=== PATIENT | male | born 1980 | race American Indian/Alaskan Native ===

== ENCOUNTER 2018-12-02 13:18 | Emergency (ER) | payer SELFPAY ==
[~2018-12-02] VITALS: Ht 165.1 cm; Wt 61.4 kg
[~2018-12-02 13:18] MED LIST: GABA-532 PO
[2018-12-02] MEDS ORDERED: chlordiazePOXIDE 25mg capsule PO ONE (14:45)
[2018-12-02] MEDS ORDERED: normal saline 1000ml 1,000 ML IV ONE (14:55)
[2018-12-02] MEDS ORDERED: ondansetron/PF 4mg/2ml inj IV ONE (15:10)
[2018-12-02 16:10] VITALS: BP 112/46
== END 2018-12-02 16:11 | disposition home or self-care (01) ==
LOC: ER 13:18
DX: F10.920 Alcohol use, unspecified with intoxication, uncomplicated (principal); F17.200 Nicotine dependence, unspecified, uncomplicated; Z98.890 Other specified postprocedural states; Z88.0 Allergy status to penicillin; Z88.2 Allergy status to sulfonamides; Z88.1 Allergy status to other antibiotic agents; Z88.5 Allergy status to narcotic agent; Z79.899 Other long term (current) drug therapy; Y90.9 Presence of alcohol in blood, level not specified
CPT/HCPCS: 96374; 99283; J2405; J7030

== ENCOUNTER 2019-03-27 18:38 | Emergency (ER) | payer MEDICAID ==
[~2019-03-27] VITALS: Ht 165.1 cm; Wt 63.0 kg
[2019-03-27 18:58] LABS: CLARITY,URINE CLEAR (Clear); COLOR,URINE YELLOW (Yellow); GLUCOSE, URINE NEGATIVE (Neg); KETONES,URINE NEGATIVE (Neg); LEUKOCYTE ESTERASE ,URINE NEGATIVE (Neg); NITRITES, URINE NEGATIVE (Neg); OCCULT BLOOD,URINE NEGATIVE (Neg); PROTEIN,URINE NEGATIVE (Neg); UROBILINOGEN,URINE 0.2 E.U/dL (0.2-1.0)
--- NOTE | 2019-03-27 19:02 | NUR ---
PT'S FATHER DON
[2019-03-27 19:05] LABS: UA COLLECTION TYPE CLN CATCH MIDSTREAM
[2019-03-27] MEDS ORDERED: NO HOME MEDS (20:03)
[2019-03-27 20:25] LABS: BASOPHILS # (AUTO) 0.1 X10'3 (0-0.2); EOSINOPHILS # (AUTO) 0.1 X10'3 (0-0.9); MEAN CORPUSCULAR VOLUME 100.7 FL (78-98); MEAN PLATELET VOLUME 7.9 FL (7.4-10.4); MONOCYTES # (AUTO) 0.7 X10'3 (0-0.9); NEUTROPHILS # (AUTO) 3.6 X10'3 (1.8-7.7); NEUTROPHILS % (AUTO) 39.3 % (42-75)
[2019-03-27 20:27] LABS: BASOPHILS % (AUTO) 0.8 % (0-1); EOSINOPHILS % (AUTO) 0.9 % (0-6); HEMATOCRIT 40.2 % (42.0-52.0); HEMOGLOBIN 13.9 g/dl (14.0-17.9); LYMPHOCYTES # (AUTO) 4.7 X10'3 (1.1-4.8); LYMPHOCYTES % (AUTO) 51.5 % (21-51); MEAN CORPUSCULAR HEMOGLOBIN 34.9 PG (27.0-31.0); MEAN CORPUSCULAR HGB CONC 34.6 g/dL (33.0-36.5); MONOCYTES % (AUTO) 7.5 % (2-12); PLATELET COUNT 315 X10'3 (140-440); RED CELL DISTRIBUTION WIDTH 15.7 % (11.5-14.5)
[2019-03-27 20:38] LABS: ALANINE AMINOTRANSFERASE 50 U/L (12-78); ALBUMIN 3.4 G/DL (3.4-5.0); ALBUMIN/GLOBULIN RATIO 1.1 (1.1-1.5); ALKALINE PHOSPHATASE 102 IU/L (46-116); ANION GAP 6 (8-16); ASPARTATE AMINO TRANSFERASE 57 U/L (10-37); BILIRUBIN,TOTAL 0.4 MG/DL (0.1-1.0); BLOOD UREA NITROGEN 9 MG/DL (7-18); BUN/CREATININE RATIO 10.1 (5.4-32.0); CALCIUM 8.6 MG/DL (8.5-10.1); CHLORIDE 109 MMOL/L (99-107); CREATININE 0.89 MG/DL (0.60-1.10); GLUCOSE 82 MG/DL (70-104); SODIUM 148 MMOL/L (135-145); TOTAL CARBON DIOXIDE 32.7 MMOL/L (24-32); TOTAL PROTEIN 6.4 G/DL (6.4-8.2); eGFR > 90 ML/MIN
[2019-03-27 21:06] LABS: ETHANOL 0.334 GM/DL (0.0-0.010)
[2019-03-27] MEDS ORDERED: potassium Cl 20 mEq SR tablet PO STA (21:22)
--- NOTE | 2019-03-27 21:29 | NUR ---
PT'S DAUGHTER, CAORL . DAUGHTER'S BOYFRIEND AL .
[2019-03-27] MEDS ORDERED: LIDOcaine Viscous 15ml cup MM ONE (21:50)
[2019-03-27] MEDS ORDERED: famotidine 20mg tablet PO ONE (21:50)
[2019-03-27] MEDS ORDERED: ondansetron/PF 4mg/2ml inj IV ONE (21:50)
[2019-03-27] MEDS ORDERED: mag hydrox/Alum hydrox/simeth 30ml oral suspension PO ONE (21:50)
[2019-03-27] MEDS ORDERED: famotidine 10mg tablet PO ONE (22:00)
[2019-03-27 22:14] LABS: URINE AMPHETAMINE SCREEN NEGATIVE (Neg); URINE BARBITUATE SCREEN NEGATIVE (Neg); URINE BENZODIAZEPINES SCREEN NEGATIVE (Neg); URINE CANNABINOID SCREEN POSITIVE (Neg); URINE COCAINE SCREEN NEGATIVE (Neg); URINE METHADONE SCREEN NEGATIVE (Neg); URINE OPIATE SCREEN NEGATIVE (Neg); URINE PHENCYCLIDINE SCREEN NEGATIVE (Neg)
--- NOTE | 2019-03-27 22:16 | NUR ---
PTS BELONGINGS CHARTED AND SECURED IN AMBULANCE [facility]. BELONGINGS CONSISTED OF: 1 SHIRT, 2 SWEATERS, 1 BELT, 1 PAIR OF SHOES, 1 PAIR OF SOCKS, 2 SETS OF KEYS, WALLET (NO ASHRAF), ID CARD, MEMBERS 1ST BANK CARD, AND 1 PACK OF CAMEL CIGARETTES.
[2019-03-28 04:31] VITALS: BP 130/86
--- NOTE | 2019-03-28 06:42 | NUR ---
packet faxed to [facility]
--- NOTE | 2019-03-28 07:05 | NUR ---
Report from [facility] DIRK Meyers given to DIRK Raya. Pt ambulated from room 16 to overflow ED bed 25. Pt able to ambulate without assist and is calm and cooperative.
--- NOTE | 2019-03-28 07:15 | NUR ---
Patient ambulatory to bed 25, steady gait. No distress observed. Continue to monitor.
--- NOTE | 2019-03-28 08:50 | NUR ---
Patient reclining in bed with his eye clothes. No distress observed. Continue to monitor.
--- NOTE | 2019-03-28 10:40 | NUR ---
Patient awake and alert and laying in bed. Patient states he is no longer suicidal. Patient states his cousin's was last night and he was very depressed (cousin [place] [address] a couple of weeks ago and was young with a young family). Patient states he doesn't drink everyday but the last couple of weeks he has been drinking daily. Patient states he is feeling better. Patient state his daughter was worried about him and called the polince.
--- NOTE | 2019-03-28 12:41 | NUR ---
pt is sitting up in bed no issues at this time
== END 2019-03-28 13:29 | disposition home or self-care (01) ==
LOC: ER 18:38
DX: R45.851 Suicidal ideations (principal); F10.129 Alcohol abuse with intoxication, unspecified; Y90.9 Presence of alcohol in blood, level not specified; F17.200 Nicotine dependence, unspecified, uncomplicated; F10.99 Alcohol use, unspecified with unspecified alcohol-induced disorder; G89.21 Chronic pain due to trauma; Z98.890 Other specified postprocedural states; Z88.1 Allergy status to other antibiotic agents; Z88.5 Allergy status to narcotic agent; Z88.0 Allergy status to penicillin
CPT/HCPCS: 36415; 80053; 80305; 80320; 81003; 84443; 85025; 96374; 99284; J2405

== ENCOUNTER 2019-08-09 20:51 | Emergency (ER) | payer MEDICAID ==
[~2019-08-09] VITALS: Ht 162.6 cm; Wt 61.4 kg
[~2019-08-09 20:51] MED LIST changes: -GABA-532 PO; +NO HOME MEDS
[2019-08-09 20:58] VITALS: BP 141/102
[2019-08-09] MEDS ORDERED: HYDROcodone/acetaminophen 10/325mg tab PO ONE (21:05)
[2019-08-09] MEDS ORDERED: HYDR-4353 PO (21:30)
[2019-08-10] MEDS ORDERED: GABA-532 PO (02:45)
[2019-08-10] MEDS ORDERED: ONDA8TAB13 PO (03:09)
== END 2019-08-09 21:43 | disposition home or self-care (01) ==
LOC: ER 20:52
DX: S29.8XXA Other specified injuries of thorax, initial encounter (principal); F17.200 Nicotine dependence, unspecified, uncomplicated; Z98.890 Other specified postprocedural states; Z88.0 Allergy status to penicillin; Z88.2 Allergy status to sulfonamides; Z88.5 Allergy status to narcotic agent; Z88.1 Allergy status to other antibiotic agents; Z79.899 Other long term (current) drug therapy; W18.39XA Other fall on same level, initial encounter; Y93.89 Activity, other specified; Y92.89 Other specified places as the place of occurrence of the external cause; Y99.8 Other external cause status
CPT/HCPCS: 71101; 99284

== ENCOUNTER 2019-08-10 02:05 | Emergency (ER) | payer MEDICAID ==
[~2019-08-10] VITALS: Ht 162.6 cm; Wt 61.4 kg
[~2019-08-10 02:05] MED LIST changes: +HYDR-4353 PO
[2019-08-10] MEDS ORDERED: LORazepam 2 mg/ml vial IM ONE (02:40)
[2019-08-10] MEDS ORDERED: ondansetron 4mg rapidly disintigrating tab PO ONE (02:40)
[2019-08-10] MEDS ORDERED: GABA-532 PO (02:45)
[2019-08-10] MEDS ORDERED: ONDA8TAB13 PO (03:09)
[2019-08-10 03:12] VITALS: BP 148/87
== END 2019-08-10 03:13 | disposition home or self-care (01) ==
LOC: ER 02:05
DX: F10.239 Alcohol dependence with withdrawal, unspecified (principal); R11.2 Nausea with vomiting, unspecified; F17.200 Nicotine dependence, unspecified, uncomplicated; Z98.890 Other specified postprocedural states; Z88.0 Allergy status to penicillin; Z88.2 Allergy status to sulfonamides; Z79.899 Other long term (current) drug therapy; Y90.0 Blood alcohol level of less than 20 mg/100 ml
CPT/HCPCS: 96372; 99284; J2060

== ENCOUNTER 2019-10-06 08:16 | Emergency (ER) | payer MEDICAID ==
[~2019-10-06] VITALS: Ht 165.1 cm; Wt 62.0 kg
[~2019-10-06 08:16] MED LIST changes: +GABA-532 PO; -HYDR-4353 PO; +ONDA8TAB13 PO
[2019-10-06 08:22] VITALS: BP 160/99
[2019-10-06 08:41] LABS: CLARITY,URINE CLEAR (Clear); GLUCOSE, URINE NEGATIVE (Neg); KETONES,URINE TRACE mg/dl (Neg); LEUKOCYTE ESTERASE ,URINE NEGATIVE (Neg); NITRITES, URINE NEGATIVE (Neg); OCCULT BLOOD,URINE NEGATIVE (Neg); PROTEIN,URINE TRACE mg/dl (Neg); UROBILINOGEN,URINE 0.2 E.U/dL (0.2-1.0)
[2019-10-06 08:43] LABS: COLOR,URINE DARK YELLOW (Yellow); UA COLLECTION TYPE CLN CATCH MIDSTREAM
[2019-10-06 08:48] LABS: BACTERIA,URINE NONE SEEN /HPF (Neg); RBC,URINE 0-2 /HPF (0-2); SQUAMOUS EPITHELIAL CELL,UR FEW /LPF (FEW); WBC,URINE 0-4 /HPF (0-4)
[2019-10-06 08:49] LABS: HYALINE CASTS 0-3 /LPF (NEGATIVE); MUCUS STRANDS FEW /LPF (Neg); TRANSITIONAL EPI CELLS,URINE FEW /HPF
[2019-10-06] MEDS ORDERED: famotidine/PF 10 mg/ml inj IV ONE (09:00)
[2019-10-06] MEDS ORDERED: ringers solution, lacted 1,000 ML IV ONE (09:00)
[2019-10-06] MEDS ORDERED: ondansetron/PF 4mg/2ml inj IV ONE (09:00)
[2019-10-06 09:05] LABS: BASOPHILS # (AUTO) 0.1 X10'3 (0-0.2); BASOPHILS % (AUTO) 1.1 % (0-1); EOSINOPHILS # (AUTO) 0.2 X10'3 (0-0.9); EOSINOPHILS % (AUTO) 1.9 % (0-6); HEMATOCRIT 47.1 % (42.0-52.0); HEMOGLOBIN 16.1 g/dl (14.0-17.9); LYMPHOCYTES # (AUTO) 2.1 X10'3 (1.1-4.8); LYMPHOCYTES % (AUTO) 23.4 % (21-51); MEAN CORPUSCULAR HEMOGLOBIN 34.4 PG (27.0-31.0); MEAN CORPUSCULAR HGB CONC 34.2 g/dL (33.0-36.5); MEAN CORPUSCULAR VOLUME 100.8 FL (78-98); MEAN PLATELET VOLUME 7.8 FL (7.4-10.4); MONOCYTES # (AUTO) 0.9 X10'3 (0-0.9); MONOCYTES % (AUTO) 9.9 % (2-12); NEUTROPHILS # (AUTO) 5.7 X10'3 (1.8-7.7); NEUTROPHILS % (AUTO) 63.7 % (42-75); PLATELET COUNT 384 X10'3 (140-440); RED BLOOD COUNT 4.67 X10'6 (4.70-6.10); RED CELL DISTRIBUTION WIDTH 13.5 % (11.5-14.5)
--- NOTE | 2019-10-06 09:10 | NUR ---
patient to ct.
[2019-10-06 09:14] LABS: ALANINE AMINOTRANSFERASE 28 U/L (12-78); ALKALINE PHOSPHATASE 90 IU/L (46-116); ANION GAP 9 (8-16); ASPARTATE AMINO TRANSFERASE 25 U/L (10-37); BILIRUBIN,TOTAL 0.4 MG/DL (0.1-1.0); BLOOD UREA NITROGEN 9 MG/DL (7-18); BUN/CREATININE RATIO 8.3 (5.4-32.0); CALCIUM 10.4 MG/DL (8.5-10.1); CHLORIDE 101 MMOL/L (99-107); CREATININE 1.08 MG/DL (0.60-1.10); GLUCOSE 96 MG/DL (70-104); LIPASE 185 U/L (73-393); SODIUM 142 MMOL/L (135-145); TOTAL CARBON DIOXIDE 32.2 MMOL/L (24-32); eGFR 75 ML/MIN
[2019-10-06 09:21] LABS: POTASSIUM 2.9 MMOL/L (3.5-5.1)
[2019-10-06] MEDS ORDERED: FAMO-128 PO (10:28)
[2019-10-06] MEDS ORDERED: ONDA4TAB6 PO (10:28)
[2019-10-06] MEDS ORDERED: potassium Cl 20 mEq SR tablet PO STA (10:42)
== END 2019-10-06 10:51 | disposition home or self-care (01) ==
LOC: ER 08:16
DX: R10.84 Generalized abdominal pain (principal); R11.10 Vomiting, unspecified; F10.10 Alcohol abuse, uncomplicated; Z88.0 Allergy status to penicillin; Z88.2 Allergy status to sulfonamides; Z88.1 Allergy status to other antibiotic agents; Z79.899 Other long term (current) drug therapy; Y90.9 Presence of alcohol in blood, level not specified
CPT/HCPCS: 36415; 74176; 80053; 81001; 83690; 85025; 96361; 96374; 96375; 99284; J2405; J3490; J7120

== ENCOUNTER 2019-10-18 14:11 | Emergency (ER) | payer MEDICAID ==
[~2019-10-18] VITALS: Ht 165.1 cm; Wt 70.0 kg
[~2019-10-18 14:11] MED LIST changes: +FAMO-128 PO; +ONDA4TAB6 PO
[2019-10-18 14:25] VITALS: BP 146/97
== END 2019-10-18 17:14 | disposition left against medical advice (07) ==
LOC: ER 14:12
DX: F10.239 Alcohol dependence with withdrawal, unspecified (principal); Z53.21 Procedure and treatment not carried out due to patient leaving prior to being seen by health care provider

== ENCOUNTER 2019-11-15 14:55 | Emergency (ER) | payer MEDICAID ==
[~2019-11-15] VITALS: Ht 167.6 cm; Wt 62.7 kg
[2019-11-15] MEDS ORDERED: SUMA25TA9 PO (15:36)
[2019-11-15] MEDS ORDERED: PANT-47 PO (15:36)
[2019-11-15] MEDS ORDERED: METO-539 PO (15:38)
[2019-11-15 15:40] LABS: BASOPHILS # (AUTO) 0.2 X10'3 (0-0.2); BASOPHILS % (AUTO) 1.9 % (0-1); EOSINOPHILS # (AUTO) 0.5 X10'3 (0-0.9); EOSINOPHILS % (AUTO) 4.7 % (0-6); HEMATOCRIT 47.6 % (42.0-52.0); HEMOGLOBIN 15.9 g/dl (14.0-17.9); LYMPHOCYTES # (AUTO) 4.1 X10'3 (1.1-4.8); LYMPHOCYTES % (AUTO) 37.2 % (21-51); MEAN CORPUSCULAR HEMOGLOBIN 32.4 PG (27.0-31.0); MEAN CORPUSCULAR HGB CONC 33.5 g/dL (33.0-36.5); MEAN CORPUSCULAR VOLUME 96.6 FL (78-98); MEAN PLATELET VOLUME 7.9 FL (7.4-10.4); MONOCYTES # (AUTO) 1.1 X10'3 (0-0.9); NEUTROPHILS # (AUTO) 5.1 X10'3 (1.8-7.7); NEUTROPHILS % (AUTO) 46.2 % (42-75); PLATELET COUNT 418 X10'3 (140-440); RED BLOOD COUNT 4.92 X10'6 (4.70-6.10); RED CELL DISTRIBUTION WIDTH 13.8 % (11.5-14.5); WHITE BLOOD COUNT 11.1 X10'3 (4.5-11.0)
[2019-11-15 15:50] LABS: ALANINE AMINOTRANSFERASE 27 U/L (12-78); ALBUMIN 3.8 G/DL (3.4-5.0); ALBUMIN/GLOBULIN RATIO 0.9 (1.1-1.5); ALKALINE PHOSPHATASE 61 IU/L (46-116); ANION GAP 11 (8-16); ASPARTATE AMINO TRANSFERASE 19 U/L (10-37); BILIRUBIN,TOTAL 0.2 MG/DL (0.1-1.0); BLOOD UREA NITROGEN 16 MG/DL (7-18); BUN/CREATININE RATIO 12.6 (5.4-32.0); CALCIUM 9.1 MG/DL (8.5-10.1); CHLORIDE 107 MMOL/L (99-107); CREATININE 1.27 MG/DL (0.60-1.10); GLUCOSE 114 MG/DL (70-104); POTASSIUM 3.4 MMOL/L (3.5-5.1); SODIUM 144 MMOL/L (135-145); TOTAL CARBON DIOXIDE 26.2 MMOL/L (24-32); TOTAL PROTEIN 7.9 G/DL (6.4-8.2); eGFR 62 ML/MIN
[2019-11-15] MEDS ORDERED: SUMAtriptan 25 MG tablet PO PRN (15:55)
[2019-11-15] MEDS ORDERED: potassium Cl 20 mEq SR tablet PO STA (15:56)
[2019-11-15 15:59] LABS: ETHANOL 0.295 GM/DL (0.0-0.010)
--- NOTE | 2019-11-15 16:08 | NUR ---
Patient given K+ replacement. RN gave water to encourage a urine sample. Patient states he will go soon. Water pitcher at bedside. Continue to monitor.
[2019-11-15 18:43] LABS: CLARITY,URINE TURBID (Clear); COLOR,URINE YELLOW (Yellow); GLUCOSE, URINE NEGATIVE (Neg); KETONES,URINE NEGATIVE (Neg); LEUKOCYTE ESTERASE ,URINE NEGATIVE (Neg); NITRITES, URINE NEGATIVE (Neg); OCCULT BLOOD,URINE NEGATIVE (Neg); PROTEIN,URINE TRACE mg/dl (Neg); UROBILINOGEN,URINE 0.2 E.U/dL (0.2-1.0)
[2019-11-15 18:49] LABS: UA COLLECTION TYPE CLN CATCH MIDSTREAM
[2019-11-15 18:53] LABS: BACTERIA,URINE NONE SEEN /HPF (Neg); RBC,URINE NONE SEEN /HPF (0-2); SQUAMOUS EPITHELIAL CELL,UR FEW /LPF (FEW); WBC,URINE NONE SEEN /HPF (0-4)
[2019-11-15 18:54] LABS: AMORPHOUS URATES 4+; MUCUS STRANDS NONE SEEN /LPF (Neg)
[2019-11-15 19:02] LABS: URINE AMPHETAMINE SCREEN NEGATIVE (Neg); URINE BARBITUATE SCREEN NEGATIVE (Neg); URINE BENZODIAZEPINES SCREEN POSITIVE (Neg); URINE CANNABINOID SCREEN POSITIVE (Neg); URINE COCAINE SCREEN NEGATIVE (Neg); URINE METHADONE SCREEN NEGATIVE (Neg); URINE OPIATE SCREEN NEGATIVE (Neg); URINE PHENCYCLIDINE SCREEN NEGATIVE (Neg)
--- NOTE | 2019-11-15 19:20 | NUR ---
Informed N. Leann of patient C/O possible ETOH withdrawls. PT vital signs are all within normal limits HR in the 80s and BP 125/85 no visible tremors. Will continue to monitor
[2019-11-15] MEDS: pantoprazole 40mg Tablet.DR PO SCH (20:03)
[2019-11-15] MEDS: metoprolol succinate 25mg (24-HOUR) SR. Tablet PO SCH (20:06)
--- NOTE | 2019-11-16 00:54 | NUR ---
Pt. resting quietly, no signs or symptoms of distress. Respirations even and unlabored.
[2019-11-16 05:57] VITALS: BP 128/85
[2019-11-16] MEDS: pantoprazole 40mg Tablet.DR PO SCH (08:24)
[2019-11-16] MEDS: metoprolol succinate 25mg (24-HOUR) SR. Tablet PO SCH (08:24)
[2019-11-16] MEDS ORDERED: nicotine 21mg patch - 24 hr TD ONE (08:35)
--- NOTE | 2019-11-16 09:12 | NUR ---
Breaking Primary RN, pt is quietly talking to ANKUSH Ceballos, no s/s of agitation observed
--- NOTE | 2019-11-16 10:08 | NUR ---
pt.Pt discharged home by [facility] and ER physician. Pt given belongings and cell phone. DC instructions reviewed with pt. Pt left in stable condition with belonings. Father picking up
== END 2019-11-16 10:11 | disposition home or self-care (01) ==
LOC: ER 14:55
DX: T14.91XA Suicide attempt, initial encounter (principal); F10.129 Alcohol abuse with intoxication, unspecified; E87.6 Hypokalemia; E86.0 Dehydration; F32.9 Major depressive disorder, single episode, unspecified; F10.10 Alcohol abuse, uncomplicated; F12.90 Cannabis use, unspecified, uncomplicated; Z98.890 Other specified postprocedural states; Z88.0 Allergy status to penicillin; Z88.2 Allergy status to sulfonamides; Z88.1 Allergy status to other antibiotic agents; Z79.899 Other long term (current) drug therapy; Y93.89 Activity, other specified; Y92.89 Other specified places as the place of occurrence of the external cause; Y99.8 Other external cause status; Y90.0 Blood alcohol level of less than 20 mg/100 ml
CPT/HCPCS: 36415; 80053; 80305; 80320; 81001; 84443; 85025; 99285

== ENCOUNTER 2020-02-04 19:06 | Emergency (ER) | payer MEDICAID ==
[~2020-02-04] VITALS: Ht 167.6 cm; Wt 61.3 kg
[~2020-02-04 19:06] MED LIST changes: -FAMO-128 PO; -GABA-532 PO; +METO-539 PO; -NO HOME MEDS; -ONDA4TAB6 PO; -ONDA8TAB13 PO; +PANT-47 PO; +SUMA25TA9 PO
[2020-02-04] MEDS ORDERED: ondansetron/PF 4mg/2ml inj IV ONE (22:00)
[2020-02-04] MEDS ORDERED: normal saline 1000ML IV soln IVB ONE (22:00)
[2020-02-04 22:44] LABS: BASOPHILS # (AUTO) 0.2 X10'3 (0-0.2); BASOPHILS % (AUTO) 1.7 % (0-1); EOSINOPHILS % (AUTO) 0.3 % (0-6); HEMATOCRIT 46.4 % (42.0-52.0); HEMOGLOBIN 15.8 g/dl (14.0-17.9); LYMPHOCYTES # (AUTO) 3.1 X10'3 (1.1-4.8); LYMPHOCYTES % (AUTO) 22.9 % (21-51); MEAN CORPUSCULAR HEMOGLOBIN 31.8 PG (27.0-31.0); MEAN CORPUSCULAR HGB CONC 33.9 g/dL (33.0-36.5); MEAN CORPUSCULAR VOLUME 93.7 FL (78-98); MONOCYTES # (AUTO) 0.5 X10'3 (0-0.9); MONOCYTES % (AUTO) 3.3 % (2-12); NEUTROPHILS # (AUTO) 9.8 X10'3 (1.8-7.7); NEUTROPHILS % (AUTO) 71.8 % (42-75); PLATELET COUNT 310 X10'3 (140-440); RED BLOOD COUNT 4.96 X10'6 (4.70-6.10); RED CELL DISTRIBUTION WIDTH 13.4 % (11.5-14.5); WHITE BLOOD COUNT 13.7 X10'3 (4.5-11.0)
[2020-02-04 23:01] LABS: CLARITY,URINE SLIGHTLY CLOUDY (Clear); COLOR,URINE YELLOW (Yellow); GLUCOSE, URINE NEGATIVE (Neg); KETONES,URINE NEGATIVE (Neg); LEUKOCYTE ESTERASE ,URINE NEGATIVE (Neg); OCCULT BLOOD,URINE SMALL (Neg); PH,URINE 5.5 (4.8-8.0); PROTEIN,URINE 100 mg/dl (Neg); UROBILINOGEN,URINE 0.2 E.U/dL (0.2-1.0)
[2020-02-04 23:06] LABS: NITRITES, URINE NEGATIVE (Neg); UA COLLECTION TYPE NON-SPECIFIED
[2020-02-04 23:07] LABS: AMORPHOUS URATES 1+; BACTERIA,URINE FEW /HPF (Neg); RBC,URINE 0-2 /HPF (0-2); SQUAMOUS EPITHELIAL CELL,UR FEW /LPF (FEW); WBC,URINE 0-4 /HPF (0-4)
[2020-02-04 23:29] LABS: CHLORIDE 102 MMOL/L (99-107); POTASSIUM 3.7 MMOL/L (3.5-5.1); SODIUM 145 MMOL/L (135-145)
[2020-02-04] MEDS ORDERED: GABA300C PO (23:35)
[2020-02-04] MEDS ORDERED: ONDA4TAB6 PO (23:35)
[2020-02-04 23:51] LABS: ALANINE AMINOTRANSFERASE 36 U/L (12-78); ALBUMIN 4.3 G/DL (3.4-5.0); ALBUMIN/GLOBULIN RATIO 1.2 (1.1-1.5); ALKALINE PHOSPHATASE 74 IU/L (46-116); ANION GAP 18 (8-16); ASPARTATE AMINO TRANSFERASE 33 U/L (10-37); BILIRUBIN,TOTAL 0.5 MG/DL (0.1-1.0); BLOOD UREA NITROGEN 17 MG/DL (7-18); BUN/CREATININE RATIO 15.7 (5.4-32.0); CREATININE 1.08 MG/DL (0.60-1.10); ETHANOL 0.178 GM/DL (0.0-0.010); GLUCOSE 111 MG/DL (70-104); LIPASE 77 U/L (73-393); TOTAL CARBON DIOXIDE 25.2 MMOL/L (24-32); eGFR 75 ML/MIN
[2020-02-05] MEDS ORDERED: dextrose 5%-1/2 normal saline 1,000 ML IV ONE (00:20)
[2020-02-05] MEDS ORDERED: folic acid 1mg/0.2ml inj IV ONE (00:30)
[2020-02-05] MEDS ORDERED: thiamine 100mg/ml 2ml inj. IV ONE (00:30)
[2020-02-05 04:56] VITALS: BP 118/76
== END 2020-02-05 04:57 | disposition home or self-care (01) ==
LOC: ER 19:07
DX: R11.2 Nausea with vomiting, unspecified (principal); F10.230 Alcohol dependence with withdrawal, uncomplicated; F10.929 Alcohol use, unspecified with intoxication, unspecified; G43.909 Migraine, unspecified, not intractable, without status migrainosus; F31.9 Bipolar disorder, unspecified; G89.29 Other chronic pain; F32.9 Major depressive disorder, single episode, unspecified; Z88.0 Allergy status to penicillin; Z88.2 Allergy status to sulfonamides; Z88.1 Allergy status to other antibiotic agents; Z88.5 Allergy status to narcotic agent; Z79.899 Other long term (current) drug therapy; Y90.9 Presence of alcohol in blood, level not specified
CPT/HCPCS: 36415; 80053; 80320; 81001; 82948; 83690; 85025; 96361; 96374; 96375; 99285; J2405; J3411; J3490; J7030; 93005

== ENCOUNTER 2020-02-18 17:55 | Inpatient (IN) | payer MEDICAID ==
[~2020-02-18] VITALS: Ht 165.1 cm; Wt 62.3 kg
[~2020-02-18 17:55] MED LIST changes: +GABA300C PO; +ONDA4TAB6 PO
[2020-02-18] MEDS ORDERED: normal saline 1000ML IV soln IVB ONE ×2 (18:55→20:40)
[2020-02-18] MEDS ORDERED: LORazepam 2 mg/ml vial IV ONE (18:55)
[2020-02-18] MEDS ORDERED: ketorolac tromethamine 15mg/ml inj. IV ONE (19:20)
[2020-02-18 19:45] LABS: BASOPHILS # (AUTO) 0.1 X10'3 (0-0.2); BASOPHILS % (AUTO) 0.7 % (0-1); EOSINOPHILS % (AUTO) 0.3 % (0-6); HEMATOCRIT 51.1 % (42.0-52.0); HEMOGLOBIN 17.5 g/dl (14.0-17.9); LYMPHOCYTES # (AUTO) 2.5 X10'3 (1.1-4.8); LYMPHOCYTES % (AUTO) 19.3 % (21-51); MEAN CORPUSCULAR HEMOGLOBIN 32.2 PG (27.0-31.0); MEAN CORPUSCULAR HGB CONC 34.3 g/dL (33.0-36.5); MEAN PLATELET VOLUME 7.9 FL (7.4-10.4); MONOCYTES # (AUTO) 1.1 X10'3 (0-0.9); NEUTROPHILS # (AUTO) 9.4 X10'3 (1.8-7.7); NEUTROPHILS % (AUTO) 71.7 % (42-75); PLATELET COUNT 305 X10'3 (140-440); RED BLOOD COUNT 5.44 X10'6 (4.70-6.10); RED CELL DISTRIBUTION WIDTH 13.5 % (11.5-14.5); WHITE BLOOD COUNT 13.2 X10'3 (4.5-11.0)
[2020-02-18 19:50] LABS: PARTIAL THROMBOPLASTIN TIME 25 SECONDS (22-32)
[2020-02-18 20:02] LABS: ALANINE AMINOTRANSFERASE 201 U/L (12-78); ALBUMIN 3.8 G/DL (3.4-5.0); ALBUMIN/GLOBULIN RATIO 0.9 (1.1-1.5); ALKALINE PHOSPHATASE 139 IU/L (46-116); ANION GAP 14 (8-16); ASPARTATE AMINO TRANSFERASE 147 U/L (10-37); BILIRUBIN,TOTAL 0.2 MG/DL (0.1-1.0); BLOOD UREA NITROGEN 17 MG/DL (7-18); BUN/CREATININE RATIO 13.9 (5.4-32.0); CALCIUM 8.4 MG/DL (8.5-10.1); CHLORIDE 100 MMOL/L (99-107); CREATININE 1.22 MG/DL (0.60-1.10); ETHANOL 0.083 GM/DL (0.0-0.010); GLUCOSE 138 MG/DL (70-104); LIPASE 1068 U/L (73-393); MAGNESIUM 1.6 MG/DL (1.5-2.4); SODIUM 143 MMOL/L (135-145); TOTAL CARBON DIOXIDE 29.2 MMOL/L (24-32); TOTAL PROTEIN 7.9 G/DL (6.4-8.2); eGFR 65 ML/MIN
[2020-02-18] MEDS ORDERED: potassium Cl 20 mEq SR tablet PO ONE (20:40)
[2020-02-18] MEDS ORDERED: magnesium oxide 400mg tablet PO ONE (20:40)
[2020-02-18] MEDS ORDERED: magnesium 2GM in 50ml NS 50 ML IV ONE (20:40)
[2020-02-18] MEDS ORDERED: potassium 10mEq/100ml NS w/LIDOcaine (10mg/bag) IV ONE (20:40)
[2020-02-18] MEDS ORDERED: potassium Cl 10 mEq/100mL bag IV ONE (20:50)
[2020-02-18] MEDS ORDERED: chlordiazePOXIDE 25mg capsule PO ONE (20:50)
[2020-02-18] MEDS ORDERED: potassium Cl 20 mEq SR tablet PO PRN ×2 (21:35)
[2020-02-18] MEDS ORDERED: potassium CL 10mEq/100ml bag 100 ML IV PRN (21:35)
[2020-02-18] MEDS: normal saline 1000ml 1,000 ML IV SCH (21:35)
[2020-02-18] MEDS ORDERED: magnesium 4gm in 100ml NS 100 ML IV PRN (21:35)
[2020-02-18] MEDS ORDERED: magnesium Cl slow-release 64mg tablet PO PRN (21:35)
[2020-02-18] MEDS ORDERED: magnesium 2GM in 50ml NS 50 ML IV PRN (21:35)
[2020-02-18] MEDS ORDERED: acetaminophen 325mg tablet PO PRN (21:35)
[2020-02-18] MEDS ORDERED: METO-395 PO (21:42)
[2020-02-19 00:21] VITALS: BP 133/83
[2020-02-19] MEDS ORDERED: haloperidol 5mg tablet PO PRN (01:25)
[2020-02-19] MEDS ORDERED: HYDROcodone/acetaminophen 5mg/325mg tablet PO ONE (01:25)
[2020-02-19] MEDS ORDERED: haloperidol lactate 5mg/ml inj IM PRN (01:25)
[2020-02-19] MEDS: ondansetron/PF 4mg/2ml inj IV PRN ×2 (03:37→08:09)
[2020-02-19] MEDS ORDERED: thiamine inj. 100 MG in normal saline 100ml IV soln 100 ML IV ONE (04:00)
[2020-02-19 06:00] VITALS: BP 153/91
--- NOTE | 2020-02-19 06:10 | NUR ---
received report from collin shah
[2020-02-19 06:32] LABS: BASOPHILS # (AUTO) 0.1 X10'3 (0-0.2); BASOPHILS % (AUTO) 0.5 % (0-1); EOSINOPHILS # (AUTO) 0.2 X10'3 (0-0.9); EOSINOPHILS % (AUTO) 1.8 % (0-6); HEMATOCRIT 39.3 % (42.0-52.0); HEMOGLOBIN 13.4 g/dl (14.0-17.9); LYMPHOCYTES # (AUTO) 2.4 X10'3 (1.1-4.8); LYMPHOCYTES % (AUTO) 21.8 % (21-51); MEAN CORPUSCULAR HEMOGLOBIN 31.9 PG (27.0-31.0); MEAN CORPUSCULAR HGB CONC 33.9 g/dL (33.0-36.5); MEAN CORPUSCULAR VOLUME 93.8 FL (78-98); MEAN PLATELET VOLUME 7.9 FL (7.4-10.4); MONOCYTES # (AUTO) 0.9 X10'3 (0-0.9); MONOCYTES % (AUTO) 8.2 % (2-12); NEUTROPHILS # (AUTO) 7.6 X10'3 (1.8-7.7); NEUTROPHILS % (AUTO) 67.7 % (42-75); PLATELET COUNT 202 X10'3 (140-440); RED BLOOD COUNT 4.19 X10'6 (4.70-6.10); RED CELL DISTRIBUTION WIDTH 13.5 % (11.5-14.5); WHITE BLOOD COUNT 11.2 X10'3 (4.5-11.0)
[2020-02-19 06:42] LABS: ALBUMIN 2.9 G/DL (3.4-5.0); ANION GAP 8 (8-16); BLOOD UREA NITROGEN 14 MG/DL (7-18); BUN/CREATININE RATIO 13.9 (5.4-32.0); CALCIUM 6.8 MG/DL (8.5-10.1); CHLORIDE 107 MMOL/L (99-107); CREATININE 1.01 MG/DL (0.60-1.10); GLUCOSE 100 MG/DL (70-104); MAGNESIUM 1.8 MG/DL (1.5-2.4); POTASSIUM 3.5 MMOL/L (3.5-5.1); SODIUM 140 MMOL/L (135-145); TOTAL CARBON DIOXIDE 25.3 MMOL/L (24-32); eGFR 81 ML/MIN
[2020-02-19] MEDS: K and/or MAG REPLACEMENT MC SCH ×2 (06:54→20:00)
[2020-02-19] MEDS: normal saline 1000ml 1,000 ML IV SCH ×3 (07:35→19:38)
[2020-02-19] MEDS: folic acid 1mg/0.2ml inj IV SCH (07:49)
[2020-02-19] MEDS: thiamine inj. 100 MG, MVI, adult No.4 with vit. K 10 ML in dextrose 5% water 500ml 500 ML IV SCH ×3 (07:50)
[2020-02-19] MEDS ORDERED: HYDROcodone/acetaminophen 5mg/325mg tablet PO PRN (08:00)
[2020-02-19] MEDS ORDERED: HYDROmorphone inj. 0.5 MG/0.5 ML DISP.SYRIN IV PRN (08:00)
[2020-02-19] MEDS: metoprolol succinate 25mg (24-HOUR) SR. Tablet PO SCH (08:00)
[2020-02-19] MEDS: pantoprazole 40mg Tablet.DR PO SCH ×2 (08:01→19:37)
[2020-02-19] MEDS: nicotine 14mg patch - 24hr TD SCH (08:16)
[2020-02-19 10:25] VITALS: BP 164/90
[2020-02-19] MEDS: HYDROcodone/acetaminophen 10/325mg tab PO PRN ×3 (10:32→20:47)
--- NOTE | 2020-02-19 11:56 | NUR ---
Malnutrition consult re: lost weight d/t decreased appetite and nausea. Noted elevated lipase at 1068; per H&P pt had 6 shots hard liquor the night prior to presenting to the ED, had tripped, and subsequently consumed two more shots for the pain, and vomited. C/o nausea and vomiting likely r/t EtOH intake. H/o drinking 4-6 shots EtOH daily and admit with acute pancreatitis. Per H&P well developed. Receiving zofran. Is NPO. No edema. Per past weight history no significant weight loss in past year. Does not meet criteria for malnutrition. No malnutrition. Addendum: 02/19/20 at [address] Amended: Links added.
[2020-02-19] MEDS: LORazepam 2 mg/ml vial IV PRN ×3 (12:17→16:32)
[2020-02-19] MEDS: metoclopramide 5 mg/ml inj IV PRN ×2 (13:22→21:42)
[2020-02-19 18:00] VITALS: BP 143/90
--- NOTE | 2020-02-19 18:20 | NUR ---
gave report to july,
[2020-02-19] MEDS: LORazepam 1 MG tablet PO PRN (19:40)
[2020-02-19 22:00] VITALS: BP 135/84
[2020-02-20] MEDS: HYDROcodone/acetaminophen 10/325mg tab PO PRN ×5 (02:16→23:21)
--- NOTE | 2020-02-20 06:22 | NUR ---
Patient in room ORTHO 4021. I have received report from July and had the opportunity to ask questions and assume patient care.
[2020-02-20 07:02] LABS: BASOPHILS # (AUTO) 0.1 X10'3 (0-0.2); BASOPHILS % (AUTO) 0.7 % (0-1); EOSINOPHILS # (AUTO) 0.4 X10'3 (0-0.9); EOSINOPHILS % (AUTO) 5.2 % (0-6); HEMATOCRIT 37.3 % (42.0-52.0); HEMOGLOBIN 12.7 g/dl (14.0-17.9); LYMPHOCYTES # (AUTO) 2.2 X10'3 (1.1-4.8); LYMPHOCYTES % (AUTO) 28.6 % (21-51); MEAN CORPUSCULAR HEMOGLOBIN 31.8 PG (27.0-31.0); MEAN CORPUSCULAR HGB CONC 34.1 g/dL (33.0-36.5); MEAN CORPUSCULAR VOLUME 93.3 FL (78-98); MEAN PLATELET VOLUME 7.8 FL (7.4-10.4); MONOCYTES # (AUTO) 0.6 X10'3 (0-0.9); MONOCYTES % (AUTO) 7.2 % (2-12); NEUTROPHILS # (AUTO) 4.5 X10'3 (1.8-7.7); NEUTROPHILS % (AUTO) 58.3 % (42-75); PLATELET COUNT 192 X10'3 (140-440); RED CELL DISTRIBUTION WIDTH 13.3 % (11.5-14.5); WHITE BLOOD COUNT 7.7 X10'3 (4.5-11.0)
[2020-02-20 07:17] LABS: ALANINE AMINOTRANSFERASE 121 U/L (12-78); ALBUMIN 2.8 G/DL (3.4-5.0); ALBUMIN/GLOBULIN RATIO 0.9 (1.1-1.5); ALKALINE PHOSPHATASE 110 IU/L (46-116); AMYLASE 35 U/L (25-115); ANION GAP 7 (8-16); ASPARTATE AMINO TRANSFERASE 128 U/L (10-37); BILIRUBIN,TOTAL 0.5 MG/DL (0.1-1.0); BLOOD UREA NITROGEN 3 MG/DL (7-18); BUN/CREATININE RATIO 3.8 (5.4-32.0); CALCIUM 6.7 MG/DL (8.5-10.1); CHLORIDE 104 MMOL/L (99-107); CREATININE 0.79 MG/DL (0.60-1.10); GLUCOSE 82 MG/DL (70-104); LIPASE 350 U/L (73-393); MAGNESIUM 1.3 MG/DL (1.5-2.4); PHOSPHORUS 1.6 MG/DL (2.3-4.5); SODIUM 136 MMOL/L (135-145); TOTAL CARBON DIOXIDE 25.5 MMOL/L (24-32); TOTAL PROTEIN 5.8 G/DL (6.4-8.2); eGFR > 90 ML/MIN
[2020-02-20] MEDS: K and/or MAG REPLACEMENT MC SCH ×2 (08:00→20:00)
[2020-02-20] MEDS: pantoprazole 40mg Tablet.DR PO SCH ×2 (08:00→19:00)
[2020-02-20] MEDS: folic acid 1mg/0.2ml inj IV SCH (08:00)
[2020-02-20] MEDS: metoprolol succinate 25mg (24-HOUR) SR. Tablet PO SCH (08:00)
[2020-02-20] MEDS: ondansetron/PF 4mg/2ml inj IV PRN (08:00)
[2020-02-20] MEDS: LORazepam 1 MG tablet PO PRN ×2 (08:00→20:38)
[2020-02-20] MEDS: thiamine inj. 100 MG, MVI, adult No.4 with vit. K 10 ML in dextrose 5% water 500ml 500 ML IV SCH ×3 (08:00)
[2020-02-20] MEDS: nicotine 14mg patch - 24hr TD SCH (08:11)
[2020-02-20 10:00] VITALS: BP 144/85
[2020-02-20] MEDS ORDERED: POTASSIUM BICARB 20meq eff tab 20 MEQ TABLET.EFF PO PRN ×2 (10:57→10:58)
[2020-02-20] MEDS: normal saline 1000ml 1,000 ML IV SCH (11:00)
[2020-02-20 18:00] VITALS: BP 161/104
[2020-02-20] MEDS: potassium CL 10mEq/100ml bag 100 ML IV PRN ×3 (20:34→23:20)
[2020-02-20 22:00] VITALS: BP 149/93
[2020-02-21] MEDS: potassium CL 10mEq/100ml bag 100 ML IV PRN (00:32)
[2020-02-21] MEDS: HYDROcodone/acetaminophen 10/325mg tab PO PRN (04:46)
[2020-02-21] MEDS: normal saline 1000ml 1,000 ML IV SCH ×2 (04:49→09:35)
--- NOTE | 2020-02-21 06:17 | NUR ---
Problems reprioritized. Patient report given, questions answered & plan of care reviewed with DIRK NÚÑEZ.
[2020-02-21 07:54] LABS: BASOPHILS % (AUTO) 0.8 % (0-1); EOSINOPHILS # (AUTO) 0.3 X10'3 (0-0.9); EOSINOPHILS % (AUTO) 5.2 % (0-6); HEMATOCRIT 38.9 % (42.0-52.0); HEMOGLOBIN 13.3 g/dl (14.0-17.9); LYMPHOCYTES # (AUTO) 1.5 X10'3 (1.1-4.8); LYMPHOCYTES % (AUTO) 26.6 % (21-51); MEAN CORPUSCULAR HEMOGLOBIN 32.1 PG (27.0-31.0); MEAN CORPUSCULAR HGB CONC 34.3 g/dL (33.0-36.5); MEAN CORPUSCULAR VOLUME 93.7 FL (78-98); MONOCYTES # (AUTO) 0.4 X10'3 (0-0.9); MONOCYTES % (AUTO) 7.9 % (2-12); NEUTROPHILS # (AUTO) 3.3 X10'3 (1.8-7.7); NEUTROPHILS % (AUTO) 59.5 % (42-75); PLATELET COUNT 207 X10'3 (140-440); RED BLOOD COUNT 4.15 X10'6 (4.70-6.10); RED CELL DISTRIBUTION WIDTH 13.6 % (11.5-14.5); WHITE BLOOD COUNT 5.5 X10'3 (4.5-11.0)
[2020-02-21] MEDS: thiamine inj. 100 MG, MVI, adult No.4 with vit. K 10 ML in dextrose 5% water 500ml 500 ML IV SCH ×3 (08:09)
[2020-02-21] MEDS: metoprolol succinate 25mg (24-HOUR) SR. Tablet PO SCH (08:10)
[2020-02-21] MEDS: pantoprazole 40mg Tablet.DR PO SCH (08:10)
[2020-02-21] MEDS: nicotine 14mg patch - 24hr TD SCH (08:11)
[2020-02-21] MEDS: LORazepam 1 MG tablet PO PRN (08:11)
[2020-02-21] MEDS: folic acid 1mg/0.2ml inj IV SCH (08:18)
[2020-02-21 08:23] LABS: ALANINE AMINOTRANSFERASE 183 U/L (12-78); ALBUMIN 2.9 G/DL (3.4-5.0); ALBUMIN/GLOBULIN RATIO 0.9 (1.1-1.5); ALKALINE PHOSPHATASE 118 IU/L (46-116); AMYLASE 41 U/L (25-115); ANION GAP 7 (8-16); ASPARTATE AMINO TRANSFERASE 238 U/L (10-37); BILIRUBIN,TOTAL 0.4 MG/DL (0.1-1.0); BLOOD UREA NITROGEN 2 MG/DL (7-18); BUN/CREATININE RATIO 2.3 (5.4-32.0); CALCIUM 7.6 MG/DL (8.5-10.1); CHLORIDE 103 MMOL/L (99-107); CREATININE 0.86 MG/DL (0.60-1.10); GLUCOSE 86 MG/DL (70-104); LIPASE 355 U/L (73-393); MAGNESIUM 1.8 MG/DL (1.5-2.4); PHOSPHORUS 1.7 MG/DL (2.3-4.5); POTASSIUM 3.8 MMOL/L (3.5-5.1); SODIUM 137 MMOL/L (135-145); TOTAL CARBON DIOXIDE 27.1 MMOL/L (24-32); TOTAL PROTEIN 6.3 G/DL (6.4-8.2); eGFR > 90 ML/MIN
[2020-02-21] MEDS: ondansetron/PF 4mg/2ml inj IV PRN (10:42)
--- NOTE | 2020-02-21 13:33 | NUR ---
Patient asked to be discharged cause he had a grandma pass away. Patient had no nausea or pain. Patient was sent with education about pancreatitis. Pt said he knows he has papers at home about it.
== END 2020-02-21 13:30 | disposition home or self-care (01) | DRG 282 ==
LOC: ER 17:55 → ED HOLD 21:33 → ORTHO 4S 02-19 00:08
PROVIDERS: ADMIT Internal Medicine; ATTEND Family Medicine
DX: K85.20 Alcohol induced acute pancreatitis without necrosis or infection (principal); K70.10 Alcoholic hepatitis without ascites; F17.210 Nicotine dependence, cigarettes, uncomplicated; F10.229 Alcohol dependence with intoxication, unspecified; E87.6 Hypokalemia; F12.90 Cannabis use, unspecified, uncomplicated; K86.1 Other chronic pancreatitis; W18.09XA Striking against other object with subsequent fall, initial encounter; F32.9 Major depressive disorder, single episode, unspecified; G43.909 Migraine, unspecified, not intractable, without status migrainosus; G89.29 Other chronic pain; Y93.89 Activity, other specified; Y92.89 Other specified places as the place of occurrence of the external cause; Y99.8 Other external cause status
CPT/HCPCS: 36415; 71046; 72074; 80048; 80053; 80320; 82150; 82948; 83690; 83735; 84100; 85025; 85610; 85730; 87081; 93005; 96374; 96375; 97110; 97140; 97161; 97530; 99285; G0378; J1170; J1885; J2060; J2405; J2765; J3411; J3475; J3480; J3490; J7030; J7060

== ENCOUNTER 2020-03-03 07:19 | Inpatient (IN) | payer MEDICAID ==
[~2020-03-03] VITALS: Ht 165.1 cm; Wt 62.7 kg
[~2020-03-03 07:19] MED LIST changes: -GABA300C PO; +METO-395 PO; -METO-539 PO; -SUMA25TA9 PO
[2020-03-03] MEDS ORDERED: pantoprazole 40 MG vial IV ONE (07:25)
[2020-03-03] MEDS ORDERED: famotidine/PF 10 mg/ml inj IV ONE (07:25)
[2020-03-03] MEDS ORDERED: ondansetron/PF 4mg/2ml inj IV ONE ×2 (07:25→09:20)
[2020-03-03] MEDS ORDERED: normal saline 1000ML IV soln IVB ONE (07:25)
[2020-03-03 07:44] LABS: CLARITY,URINE CLOUDY (Clear); COLOR,URINE YELLOW (Yellow); GLUCOSE, URINE NEGATIVE (Neg); KETONES,URINE TRACE mg/dl (Neg); LEUKOCYTE ESTERASE ,URINE NEGATIVE (Neg); NITRITES, URINE NEGATIVE (Neg); OCCULT BLOOD,URINE TRACE-INTACT (Neg); PROTEIN,URINE 100 mg/dl (Neg)
[2020-03-03 07:50] LABS: UA COLLECTION TYPE URINAL
[2020-03-03 07:51] LABS: SQUAMOUS EPITHELIAL CELL,UR FEW /LPF (FEW)
[2020-03-03 07:56] LABS: MUCUS STRANDS MODERATE /LPF (Neg)
[2020-03-03 07:57] LABS: BACTERIA,URINE 2+ /HPF (Neg); RBC,URINE 0-2 /HPF (0-2); TRANSITIONAL EPI CELLS,URINE MODERATE /HPF
[2020-03-03 07:58] LABS: AMORPHOUS URATES 2+
[2020-03-03 07:59] LABS: COARSE GRANULAR CAST 0-3 /LPF (NEGATIVE); FINE GRANULAR CAST 0-3 /LPF (NEGATIVE); HYALINE CASTS 0-3 /LPF (NEGATIVE)
[2020-03-03 08:09] LABS: URINE AMPHETAMINE SCREEN NEGATIVE (Neg); URINE BARBITUATE SCREEN NEGATIVE (Neg); URINE BENZODIAZEPINES SCREEN POSITIVE (Neg); URINE CANNABINOID SCREEN POSITIVE (Neg); URINE COCAINE SCREEN NEGATIVE (Neg); URINE METHADONE SCREEN NEGATIVE (Neg); URINE OPIATE SCREEN NEGATIVE (Neg); URINE PHENCYCLIDINE SCREEN NEGATIVE (Neg)
[2020-03-03 08:18] LABS: BASOPHILS # (AUTO) 0.1 X10'3 (0-0.2); EOSINOPHILS # (AUTO) 0.2 X10'3 (0-0.9); LYMPHOCYTES # (AUTO) 1.9 X10'3 (1.1-4.8); NEUTROPHILS # (AUTO) 6.5 X10'3 (1.8-7.7); RED CELL DISTRIBUTION WIDTH 14.9 % (11.5-14.5); WHITE BLOOD COUNT 9.3 X10'3 (4.5-11.0)
[2020-03-03 08:20] LABS: BASOPHILS % (AUTO) 0.6 % (0-1); EOSINOPHILS % (AUTO) 2.3 % (0-6); HEMATOCRIT 44.6 % (42.0-52.0); HEMOGLOBIN 15.4 g/dl (14.0-17.9); LYMPHOCYTES % (AUTO) 20.9 % (21-51); MEAN CORPUSCULAR HEMOGLOBIN 32.7 PG (27.0-31.0); MEAN CORPUSCULAR HGB CONC 34.6 g/dL (33.0-36.5); MEAN CORPUSCULAR VOLUME 94.6 FL (78-98); MEAN PLATELET VOLUME 7.4 FL (7.4-10.4); MONOCYTES # (AUTO) 0.6 X10'3 (0-0.9); MONOCYTES % (AUTO) 6.6 % (2-12); NEUTROPHILS % (AUTO) 69.6 % (42-75); PLATELET COUNT 368 X10'3 (140-440); RED BLOOD COUNT 4.72 X10'6 (4.70-6.10)
[2020-03-03 08:31] LABS: ALANINE AMINOTRANSFERASE 355 U/L (12-78); ALBUMIN 3.1 G/DL (3.4-5.0); ALBUMIN/GLOBULIN RATIO 0.8 (1.1-1.5); ALKALINE PHOSPHATASE 211 IU/L (46-116); ANION GAP 13 (8-16); ASPARTATE AMINO TRANSFERASE 237 U/L (10-37); BILIRUBIN,TOTAL 0.5 MG/DL (0.1-1.0); BLOOD UREA NITROGEN 9 MG/DL (7-18); BUN/CREATININE RATIO 8.7 (5.4-32.0); CALCIUM 8.8 MG/DL (8.5-10.1); CHLORIDE 107 MMOL/L (99-107); CREATININE 1.03 MG/DL (0.60-1.10); ETHANOL 0.025 GM/DL (0.0-0.010); GLUCOSE 114 MG/DL (70-104); LIPASE 466 U/L (73-393); SODIUM 149 MMOL/L (135-145); TOTAL CARBON DIOXIDE 29.2 MMOL/L (24-32); TOTAL PROTEIN 6.9 G/DL (6.4-8.2); eGFR 80 ML/MIN
[2020-03-03 08:36] LABS: POTASSIUM 2.9 MMOL/L (3.5-5.1)
[2020-03-03] MEDS: potassium Cl 20 mEq SR tablet PO ONE ×2 (09:15→09:36)
[2020-03-03] MEDS: magnesium oxide 400mg tablet PO ONE ×2 (09:15→09:36)
--- NOTE | 2020-03-03 09:20 | NUR ---
Pt attempted to take magnesium pill with water, unable to tolerate. Nausea/vomitting. Dr. Kendall aware. Orders to give additional dose of Zofran.
[2020-03-03] MEDS ORDERED: haloperidol lactate 5mg/ml inj IM PRN (10:10)
[2020-03-03] MEDS ORDERED: potassium CL 10mEq/100ml bag 100 ML IV PRN ×2 (10:10)
[2020-03-03] MEDS ORDERED: metoclopramide 5 mg/ml inj IV PRN (10:10)
[2020-03-03] MEDS ORDERED: acetaminophen 650mg rectal suppository RC PRN (10:10)
[2020-03-03] MEDS ORDERED: haloperidol 5mg tablet PO PRN (10:10)
[2020-03-03] MEDS ORDERED: bisacodyl 10mg suppository rectal RC PRN (10:10)
[2020-03-03] MEDS ORDERED: magnesium 4gm in 100ml NS 100 ML IV PRN (10:10)
[2020-03-03] MEDS ORDERED: mag hydrox/Alum hydrox/simeth 30ml oral suspension PO PRN (10:10)
[2020-03-03] MEDS ORDERED: magnesium hydroxide 30ml (MOM) UD suspension PO PRN (10:10)
[2020-03-03] MEDS ORDERED: acetaminophen 325mg tablet PO PRN ×2 (10:10)
[2020-03-03] MEDS ORDERED: magnesium 2GM in 50ml NS 50 ML IV PRN (10:10)
[2020-03-03] MEDS ORDERED: dextrose 50%-water 50ml dispensing syringe IV PRN (10:10)
[2020-03-03] MEDS ORDERED: thiamine 100mg/ml 2ml inj. IV ONE (10:10)
[2020-03-03] MEDS: potassium Cl 20mEq in D5-NS 1,000 ML IV SCH ×2 (10:47→20:10)
[2020-03-03] MEDS: LORazepam 2 mg/ml vial IV PRN ×2 (10:47→19:57)
[2020-03-03 10:50] LABS: HEMOGLOBIN A1C 5.6 % (4.5-6.2)
--- NOTE | 2020-03-03 10:55 | NUR ---
Report given to RN on surgical.
--- NOTE | 2020-03-03 10:56 | NUR ---
RECEIVED REPORT FROM DIRK KEITH. AWAITING PATIENT ARRIVAL.
--- NOTE | 2020-03-03 11:10 | NUR ---
PATIENT ARRIVED TO FLOOR. VSS. NO COMPLAINTS.
[2020-03-03] MEDS ORDERED: CHOL200016 PO (11:20)
[2020-03-03 11:30] VITALS: BP 160/69
[2020-03-03] MEDS: potassium Cl 20 mEq SR tablet PO PRN ×2 (12:28→20:01)
--- NOTE | 2020-03-03 15:37 | NUR ---
PAGER ID: [phone] MESSAGE: Cesar ChuaB : patient c/o 12/21 abd pain. no pain medication ordered. thanks! [phone] [phone]
[2020-03-03] MEDS: HYDROcodone/acetaminophen 5mg/325mg tablet PO PRN ×2 (16:03→20:02)
--- NOTE | 2020-03-03 18:20 | NUR ---
Patient in room [facility]IA[facility] 357. I have received report from MATILDE CAVAZOS and had the opportunity to ask questions and assume patient care. Addendum: 03/03/20 at 1904 by Sandra Mistry RN Amended: Links added.
--- NOTE | 2020-03-03 18:40 | NUR ---
Problems reprioritized. Patient report given, questions answered & plan of care reviewed with DIRK Flores.
[2020-03-03 19:30] VITALS: BP 154/79
[2020-03-03] MEDS: ESOMEPRAZOLE 40 MG VIAL IV SCH (19:40)
--- NOTE | 2020-03-03 19:40 | NUR ---
pt given hs medications accucheck done. c/o of being anxious and shaky medicated with iv Ativan. noted lungs clear decreased in bases.
[2020-03-03] MEDS: heparin, porcine 5000 units/ml vial SQ SCH (19:51)
--- NOTE | 2020-03-03 19:55 | NUR ---
pt also took potassium this pm for k of 2.9 and is receiving it in his iv as well.
[2020-03-03] MEDS: K and/or MAG REPLACEMENT MC SCH (20:00)
--- NOTE | 2020-03-03 20:00 | NUR ---
pt medicated with norco for pain scanned iv and saved it but did not show up on the computer. pt requested benadryl dry skin states it also helps with his headaches. states he feels he is withdrawing. teaching done regarding effects of alcohol on his body over time and talked about pt joining AA to help him through this. pt seems receptive to this and stated he has been thinking of it since his conversation to the Dr and my teaching has helped reinforce it.
[2020-03-03] MEDS: diphenhydrAMINE 25mg capsule PO PRN (20:01)
[2020-03-03] MEDS ORDERED: normal saline 1000ml 1,000 ML IV ONE (21:55)
--- NOTE | 2020-03-03 22:00 | NUR ---
resting eyes closed without changes at this time.
[2020-03-03] MEDS: potassium CL 20mEq in D5-1/2NS 1,000 ML IV SCH (22:19)
--- NOTE | 2020-03-03 23:34 | NUR ---
awoke and requesting ice chips. few given.
[2020-03-04] VITALS: BP 148/87
[2020-03-04] MEDS: HYDROcodone/acetaminophen 5mg/325mg tablet PO PRN ×5 (01:48→22:10)
--- NOTE | 2020-03-04 01:49 | NUR ---
PT MEDICATED FOR PAIN WITH NORCO FOR THE PAIN.
--- NOTE | 2020-03-04 02:01 | NUR ---
SHAY 104.
[2020-03-04] MEDS: ondansetron/PF 4mg/2ml inj IV PRN ×2 (03:06→17:09)
--- NOTE | 2020-03-04 03:08 | NUR ---
PT WOKE UP WITH NAUSEA AND MEDICATED WITH IV ZOFRAN FOR THIS.
[2020-03-04 05:04] LABS: BASOPHILS # (AUTO) 0.2 X10'3 (0-0.2); BASOPHILS % (AUTO) 1.3 % (0-1); EOSINOPHILS # (AUTO) 0.4 X10'3 (0-0.9); EOSINOPHILS % (AUTO) 3.5 % (0-6); HEMATOCRIT 40.5 % (42.0-52.0); HEMOGLOBIN 13.7 g/dl (14.0-17.9); LYMPHOCYTES # (AUTO) 2.6 X10'3 (1.1-4.8); LYMPHOCYTES % (AUTO) 21.3 % (21-51); MEAN CORPUSCULAR HEMOGLOBIN 32.5 PG (27.0-31.0); MEAN CORPUSCULAR HGB CONC 33.8 g/dL (33.0-36.5); MEAN CORPUSCULAR VOLUME 96.3 FL (78-98); MEAN PLATELET VOLUME 7.8 FL (7.4-10.4); MONOCYTES # (AUTO) 0.6 X10'3 (0-0.9); MONOCYTES % (AUTO) 5.1 % (2-12); NEUTROPHILS # (AUTO) 8.5 X10'3 (1.8-7.7); NEUTROPHILS % (AUTO) 68.8 % (42-75); PLATELET COUNT 278 X10'3 (140-440); RED CELL DISTRIBUTION WIDTH 15.4 % (11.5-14.5); WHITE BLOOD COUNT 12.3 X10'3 (4.5-11.0)
[2020-03-04 05:33] LABS: ALANINE AMINOTRANSFERASE 278 U/L (12-78); ALBUMIN 2.7 G/DL (3.4-5.0); ALBUMIN/GLOBULIN RATIO 0.8 (1.1-1.5); ALKALINE PHOSPHATASE 182 IU/L (46-116); AMYLASE 44 U/L (25-115); ANION GAP 6 (8-16); ASPARTATE AMINO TRANSFERASE 175 U/L (10-37); BILIRUBIN,TOTAL 0.7 MG/DL (0.1-1.0); BLOOD UREA NITROGEN 6 MG/DL (7-18); BUN/CREATININE RATIO 6.3 (5.4-32.0); CALCIUM 8.2 MG/DL (8.5-10.1); CHLORIDE 112 MMOL/L (99-107); CHOL/HDL RATIO 3.8 (0.00-4.99); CHOLESTEROL 110 MG/DL (0-200); CREATININE 0.96 MG/DL (0.60-1.10); GLUCOSE 108 MG/DL (70-104); HDL CHOLESTEROL 29 MG/DL (35-60); LDL CHOLESTEROL 57 MG/DL (50-100); LIPASE 651 U/L (73-393); MAGNESIUM 1.4 MG/DL (1.5-2.4); PHOSPHORUS 2.1 MG/DL (2.3-4.5); POTASSIUM 3.7 MMOL/L (3.5-5.1); SODIUM 146 MMOL/L (135-145); TOTAL PROTEIN 6.1 G/DL (6.4-8.2); TRIGLYCERIDES 197 MG/DL (20-135); eGFR 86 ML/MIN
--- NOTE | 2020-03-04 06:23 | NUR ---
Problems reprioritized. Patient report given, questions answered & plan of care reviewed with KAROL CAVAZOS. Addendum: 03/04/20 at 0624 by Sandra Mistry RN Amended: Links added.
--- NOTE | 2020-03-04 06:25 | NUR ---
Patient in room JOSIAH 357. I have received report from DIRK Flores and had the opportunity to ask questions and assume patient care.
[2020-03-04 06:31] LABS: HIV ANTIBODY 1&2 RAPID NON-REACTIVE (Neg)
[2020-03-04] MEDS: LORazepam 2 mg/ml vial IV PRN ×4 (06:47→19:45)
[2020-03-04 07:29] VITALS: BP 156/96
[2020-03-04] MEDS: K and/or MAG REPLACEMENT MC SCH ×2 (08:00→20:00)
[2020-03-04] MEDS: metoprolol succinate 25mg (24-HOUR) SR. Tablet PO SCH (08:30)
[2020-03-04] MEDS: folic acid 1mg tablet PO SCH (08:30)
[2020-03-04] MEDS: vitamin D (cholecalciferol) 1,000 unit tablet PO SCH (08:30)
[2020-03-04] MEDS: multivitamins, therapeutics tablet PO SCH (08:30)
[2020-03-04] MEDS: thiamine 100mg tablet PO SCH (08:30)
[2020-03-04] MEDS: magnesium Cl slow-release 64mg tablet PO PRN ×2 (08:32→19:44)
[2020-03-04] MEDS: ESOMEPRAZOLE 40 MG VIAL IV SCH ×2 (08:32→19:42)
[2020-03-04] MEDS: heparin, porcine 5000 units/ml vial SQ SCH ×2 (08:35→19:46)
[2020-03-04] MEDS: potassium CL 20mEq in D5-1/2NS 1,000 ML IV SCH ×3 (10:40→19:59)
[2020-03-04 11:32] VITALS: BP 159/95
[2020-03-04] MEDS: nicotine 21mg patch - 24 hr TD SCH (13:11)
--- NOTE | 2020-03-04 15:44 | NUR ---
Malnutrition Consult: Pt admit w/ etoh .025 and N/V; hx continued etoh abuse drinking lots of whiskey s/p recent discharge 02/20 per EMR. DX acute pancreatitis r/t etoh abuse, lactic acidosis r/t acute pancreatitis, transaminitis r/t acute etoh hepatitis, and gastritis/duodenitis per MD note. Pt advanced to clear liquid diet PO 100% first meal at lunch. Pt has normal strength, no edema/wounds, appears well-developed/well-nourished per ER note, and does not meet minimum malnutrition criteria at this time. Receiving PO thiamin, folic, MVI for etoh hx. Will monitor for diet advancment and tolerance this admit. Rec: 1. advance diet as medically indicated to heart healthy 2. thiamin, folic, MVI for etoh 3. monitor for ONS needs 4. bowel care per rx 5. scaled wt this admit Addendum: 03/04/20 at [address] Amended: Links added.
--- NOTE | 2020-03-04 18:33 | NUR ---
Problems reprioritized. Patient report given, questions answered & plan of care reviewed with DIRK Flores.
--- NOTE | 2020-03-04 18:34 | NUR ---
Patient in room JOSIAH 357. I have received report from KAROL CAVAZOS and had the opportunity to ask questions and assume patient care. Addendum: 03/04/20 at 1834 by Sandra Mistry RN Amended: Links added.
--- NOTE | 2020-03-04 19:30 | NUR ---
PT C/O SHAKINESS FROM WITH DRAWLS AND ITCHING MEDICATED FOR BOTH. TEACHING DONE REGARDING ETOH A DISEASE AND PANCREATITIS AND ALSO DONE REGARDING MEDICATIONS BEING GIVEN.
[2020-03-04] MEDS: diphenhydrAMINE 25mg capsule PO PRN (19:44)
[2020-03-04 20:00] VITALS: BP 163/95
--- NOTE | 2020-03-04 22:10 | NUR ---
PT MEDICATED FOR ABD PAIN 11/[address] STOKES HAD PUT IN NEW ORDERS FOR FLAGYL PO AND PO LEVAQUIN AND GAVE THEM TO HIM.
[2020-03-04] MEDS: metroNIDAZOLE 500mg tablet PO SCH (22:14)
[2020-03-04] MEDS: levoFLOXACIN 500mg tablet PO SCH (22:14)
--- NOTE | 2020-03-05 00:10 | NUR ---
PT RESTING NO CHANGES AT THIS TIME.
[2020-03-05] MEDS: HYDROcodone/acetaminophen 5mg/325mg tablet PO PRN ×4 (02:11→18:59)
--- NOTE | 2020-03-05 02:18 | NUR ---
medicated for pain found pt awake said just woke up with severe stabbing pain and nausea. medicated with norco and zofran for this. then blood sugar done it was 99.
--- NOTE | 2020-03-05 04:15 | NUR ---
RESTING WITHOUT CHANGES.
[2020-03-05] MEDS: potassium CL 20mEq in D5-1/2NS 1,000 ML IV SCH ×2 (04:34→15:28)
--- NOTE | 2020-03-05 05:15 | NUR ---
pt resting eyes closed without changes.
[2020-03-05 05:36] LABS: BASOPHILS # (AUTO) 0.1 X10'3 (0-0.2); BASOPHILS % (AUTO) 0.7 % (0-1); EOSINOPHILS # (AUTO) 0.7 X10'3 (0-0.9); EOSINOPHILS % (AUTO) 7.6 % (0-6); HEMATOCRIT 41.1 % (42.0-52.0); HEMOGLOBIN 13.9 g/dl (14.0-17.9); LYMPHOCYTES # (AUTO) 2.3 X10'3 (1.1-4.8); LYMPHOCYTES % (AUTO) 26.7 % (21-51); MEAN CORPUSCULAR HEMOGLOBIN 32.3 PG (27.0-31.0); MEAN CORPUSCULAR VOLUME 95.1 FL (78-98); MEAN PLATELET VOLUME 8.7 FL (7.4-10.4); MONOCYTES # (AUTO) 0.5 X10'3 (0-0.9); MONOCYTES % (AUTO) 5.3 % (2-12); NEUTROPHILS # (AUTO) 5.1 X10'3 (1.8-7.7); NEUTROPHILS % (AUTO) 59.7 % (42-75); PLATELET COUNT 224 X10'3 (140-440); RED BLOOD COUNT 4.32 X10'6 (4.70-6.10); RED CELL DISTRIBUTION WIDTH 14.9 % (11.5-14.5); WHITE BLOOD COUNT 8.6 X10'3 (4.5-11.0)
[2020-03-05 05:55] LABS: ALANINE AMINOTRANSFERASE 208 U/L (12-78); ALBUMIN 2.6 G/DL (3.4-5.0); ALBUMIN/GLOBULIN RATIO 0.8 (1.1-1.5); ALKALINE PHOSPHATASE 162 IU/L (46-116); AMYLASE 41 U/L (25-115); ANION GAP 5 (8-16); ASPARTATE AMINO TRANSFERASE 123 U/L (10-37); BILIRUBIN,TOTAL 0.7 MG/DL (0.1-1.0); BLOOD UREA NITROGEN 2 MG/DL (7-18); BUN/CREATININE RATIO 2.5 (5.4-32.0); CALCIUM 8.5 MG/DL (8.5-10.1); CHLORIDE 106 MMOL/L (99-107); GLUCOSE 89 MG/DL (70-104); LIPASE 433 U/L (73-393); MAGNESIUM 1.5 MG/DL (1.5-2.4); PHOSPHORUS 2.5 MG/DL (2.3-4.5); POTASSIUM 3.4 MMOL/L (3.5-5.1); SODIUM 141 MMOL/L (135-145); TOTAL PROTEIN 5.9 G/DL (6.4-8.2); eGFR > 90 ML/MIN
--- NOTE | 2020-03-05 06:21 | NUR ---
Problems reprioritized. Patient report given, questions answered & plan of care reviewed with VIRGINIA CAVAZOS. Addendum: 03/05/20 at 0622 by Sandra Mistry RN Amended: Links added.
--- NOTE | 2020-03-05 07:00 | NUR ---
Patient in room JOSIAH 357. I have received report from DIRK Flores and had the opportunity to ask questions and assume patient care.
[2020-03-05] MEDS: ESOMEPRAZOLE 40 MG VIAL IV SCH ×2 (07:42→21:16)
[2020-03-05] MEDS: metoprolol succinate 25mg (24-HOUR) SR. Tablet PO SCH (07:46)
[2020-03-05] MEDS: potassium Cl 20 mEq SR tablet PO PRN ×3 (07:47→21:07)
[2020-03-05] MEDS: folic acid 1mg tablet PO SCH (07:48)
[2020-03-05] MEDS: multivitamins, therapeutics tablet PO SCH (07:48)
[2020-03-05] MEDS: vitamin D (cholecalciferol) 1,000 unit tablet PO SCH (07:48)
[2020-03-05] MEDS: metroNIDAZOLE 500mg tablet PO SCH ×3 (07:48→15:28)
[2020-03-05] MEDS: thiamine 100mg tablet PO SCH (07:48)
[2020-03-05] MEDS: heparin, porcine 5000 units/ml vial SQ SCH ×3 (07:50→20:56)
[2020-03-05] MEDS: nicotine 21mg patch - 24 hr TD SCH (07:55)
[2020-03-05 08:00] VITALS: BP 143/94
[2020-03-05] MEDS: K and/or MAG REPLACEMENT MC SCH ×2 (08:00→20:00)
[2020-03-05] MEDS: LORazepam 2 mg/ml vial IV PRN (09:23)
[2020-03-05] MEDS: ondansetron/PF 4mg/2ml inj IV PRN ×2 (09:25→18:59)
[2020-03-05] MEDS ORDERED: LORazepam 2 mg/ml vial IV PRN (10:10)
[2020-03-05] MEDS: levoFLOXACIN 500mg tablet PO SCH (10:54)
[2020-03-05 11:00] VITALS: BP 144/95
--- NOTE | 2020-03-05 18:31 | NUR ---
Patient in room JOSIAH 354. I have received report from VIRGINIA CAVAZOS and had the opportunity to ask questions and assume patient care. Addendum: 03/05/20 at 1831 by Sandra Mistry RN Amended: Links added.
--- NOTE | 2020-03-05 18:47 | NUR ---
Problems reprioritized. Patient report given, questions answered & plan of care reviewed with DIRK Flores.
--- NOTE | 2020-03-05 19:00 | NUR ---
MEDICATED FOR PAIN AND NAUSEA AND AFTER IT KICKED IN PT AMBULATED A LAP IN [place].
[2020-03-05 20:00] VITALS: BP 147/89
--- NOTE | 2020-03-05 20:30 | NUR ---
TOOK HS MEDS TOLERATED WELL BLOOD SUGAR 134
[2020-03-05] MEDS: lactobacillus rhamnosus 10,000 MMU CELLS/CAPSULE PO SCH ×2 (20:53→20:56)
[2020-03-05] MEDS: LORazepam 1 MG tablet PO PRN ×2 (20:53→20:56)
[2020-03-05 23:37] VITALS: BP 151/91
[2020-03-06] MEDS: LORazepam 1 MG tablet PO PRN ×2 (00:22→08:10)
[2020-03-06] MEDS: metroNIDAZOLE 500mg tablet PO SCH ×2 (00:22→07:58)
[2020-03-06] MEDS: HYDROcodone/acetaminophen 5mg/325mg tablet PO PRN (00:22)
--- NOTE | 2020-03-06 00:30 | NUR ---
HAD BEEN UP AMBULATING IN THE [place] X3 THEN C/O ABD PAIN MEDICATED WITH NORCO AND ATIVAN PO FOR THIS AND DT'S AND GIVEN HS FLAGYL.
[2020-03-06] MEDS: potassium CL 20mEq in D5-1/2NS 1,000 ML IV SCH (01:42)
--- NOTE | 2020-03-06 02:16 | NUR ---
WATCHING TV AFTER USING THE RESTROOM NO CHANGES.
--- NOTE | 2020-03-06 03:00 | NUR ---
RESTING WITHOUT CHANGES,
--- NOTE | 2020-03-06 04:30 | NUR ---
PT AWAKE UP IN THE ROOM.
[2020-03-06 06:10] LABS: BASOPHILS # (AUTO) 0.1 X10'3 (0-0.2); BASOPHILS % (AUTO) 0.7 % (0-1); EOSINOPHILS # (AUTO) 0.4 X10'3 (0-0.9); EOSINOPHILS % (AUTO) 3.8 % (0-6); HEMATOCRIT 43.4 % (42.0-52.0); HEMOGLOBIN 14.8 g/dl (14.0-17.9); LYMPHOCYTES # (AUTO) 3.4 X10'3 (1.1-4.8); LYMPHOCYTES % (AUTO) 29.4 % (21-51); MEAN CORPUSCULAR HEMOGLOBIN 32.8 PG (27.0-31.0); MEAN CORPUSCULAR HGB CONC 34.1 g/dL (33.0-36.5); MEAN PLATELET VOLUME 8.6 FL (7.4-10.4); MONOCYTES # (AUTO) 0.7 X10'3 (0-0.9); MONOCYTES % (AUTO) 6.1 % (2-12); PLATELET COUNT 221 X10'3 (140-440); RED BLOOD COUNT 4.52 X10'6 (4.70-6.10); RED CELL DISTRIBUTION WIDTH 15.3 % (11.5-14.5); WHITE BLOOD COUNT 11.6 X10'3 (4.5-11.0)
--- NOTE | 2020-03-06 06:10 | NUR ---
Problems reprioritized. Patient report given, questions answered & plan of care reviewed with KENNEY CAVAZOS. Addendum: 03/06/20 at 0611 by Sandra Mistry RN Amended: Links added.
[2020-03-06 06:23] LABS: ALANINE AMINOTRANSFERASE 192 U/L (12-78); ALBUMIN 3.1 G/DL (3.4-5.0); ALBUMIN/GLOBULIN RATIO 0.8 (1.1-1.5); ALKALINE PHOSPHATASE 173 IU/L (46-116); AMYLASE 46 U/L (25-115); ANION GAP 7 (8-16); ASPARTATE AMINO TRANSFERASE 109 U/L (10-37); BILIRUBIN,TOTAL 0.5 MG/DL (0.1-1.0); BLOOD UREA NITROGEN 1 MG/DL (7-18); BUN/CREATININE RATIO 1.1 (5.4-32.0); CALCIUM 10.1 MG/DL (8.5-10.1); CHLORIDE 105 MMOL/L (99-107); CREATININE 0.93 MG/DL (0.60-1.10); GLUCOSE 121 MG/DL (70-104); LIPASE 413 U/L (73-393); MAGNESIUM 1.6 MG/DL (1.5-2.4); PHOSPHORUS 2.7 MG/DL (2.3-4.5); POTASSIUM 3.7 MMOL/L (3.5-5.1); SODIUM 140 MMOL/L (135-145); TOTAL CARBON DIOXIDE 27.6 MMOL/L (24-32); TOTAL PROTEIN 6.9 G/DL (6.4-8.2); eGFR 90 ML/MIN
--- NOTE | 2020-03-06 06:40 | NUR ---
Received report from Sandra CAVAZOS, [facility].
[2020-03-06] MEDS: nicotine 21mg patch - 24 hr TD SCH (07:57)
[2020-03-06] MEDS: metoprolol succinate 25mg (24-HOUR) SR. Tablet PO SCH (07:58)
[2020-03-06] MEDS: K and/or MAG REPLACEMENT MC SCH (07:58)
[2020-03-06] MEDS: multivitamins, therapeutics tablet PO SCH (07:58)
[2020-03-06] MEDS: vitamin D (cholecalciferol) 1,000 unit tablet PO SCH (07:59)
[2020-03-06] MEDS: ESOMEPRAZOLE 40 MG VIAL IV SCH (07:59)
[2020-03-06] MEDS: folic acid 1mg tablet PO SCH (07:59)
[2020-03-06] MEDS: thiamine 100mg tablet PO SCH (07:59)
[2020-03-06 08:00] VITALS: BP 154/98
[2020-03-06] MEDS ORDERED: MAGN400C PO (09:56)
[2020-03-06] MEDS ORDERED: HYDR-4383 PO (09:56)
[2020-03-06] MEDS ORDERED: METR500T PO (09:56)
[2020-03-06] MEDS ORDERED: LEVO500T89 PO (09:56)
[2020-03-06] MEDS ORDERED: MULT-25 PO (09:56)
[2020-03-06] MEDS ORDERED: LORA-269 PO (09:56)
[2020-03-06] MEDS ORDERED: FOLI0.4T2 PO (09:56)
[2020-03-06] MEDS ORDERED: LACT1CAP26 PO (09:56)
[2020-03-06] MEDS ORDERED: THIA50TA10 PO (09:56)
[2020-03-06 11:00] VITALS: BP 169/93
[2020-03-06] MEDS: levoFLOXACIN 500mg tablet PO SCH (11:51)
[2020-03-06 12:00] LABS: HBSAG SCREEN Negative (Negative); HEP A AB, IGM Negative (Negative); HEPATITIS C ANTIBODY <0.1 s/co ratio (0.0-0.9)
--- NOTE | 2020-03-06 13:35 | NUR ---
Discussed discharge instructions with patient, verbalized understanding. IV removed, cathlon intact. Belongings sent with patient. Meds e-sent to [facility]elly in [place]. Patient aware of this. Patient discharged without event, escorted out via ambulation per [facility] staff, tolerated well.
[2020-03-07] MEDS ORDERED: LORazepam 1 MG tablet PO PRN (10:10)
[2020-03-07] MEDS ORDERED: LORazepam 2 mg/ml vial IV PRN (10:10)
== END 2020-03-06 13:48 | disposition home or self-care (01) | DRG 282 ==
LOC: ER 07:20 → ED HOLD 10:08 → EDBEDREQ 10:39 → SUR 3N 11:00
PROVIDERS: ADMIT Family Medicine; ATTEND Family Medicine
DX: K85.20 Alcohol induced acute pancreatitis without necrosis or infection (principal); E83.42 Hypomagnesemia; E87.0 Hyperosmolality and hypernatremia; E87.2 Acidosis; E87.6 Hypokalemia; F10.920 Alcohol use, unspecified with intoxication, uncomplicated; F12.10 Cannabis abuse, uncomplicated; F17.200 Nicotine dependence, unspecified, uncomplicated; F32.9 Major depressive disorder, single episode, unspecified; G43.909 Migraine, unspecified, not intractable, without status migrainosus; G89.29 Other chronic pain; K21.9 Gastro-esophageal reflux disease without esophagitis; I10 Essential (primary) hypertension; K29.20 Alcoholic gastritis without bleeding; R74.01 Elevation of levels of liver transaminase levels; K70.10 Alcoholic hepatitis without ascites; K29.80 Duodenitis without bleeding; K86.1 Other chronic pancreatitis; N39.0 Urinary tract infection, site not specified; Z82.49 Family history of ischemic heart disease and other diseases of the circulatory system; Z83.3 Family history of diabetes mellitus; Z88.0 Allergy status to penicillin; Z88.2 Allergy status to sulfonamides; Z88.1 Allergy status to other antibiotic agents; Z71.6 Tobacco abuse counseling; Z71.51 Drug abuse counseling and surveillance of drug abuser
CPT/HCPCS: 36415; 74176; 80053; 80061; 80305; 80320; 81001; 82150; 82948; 83036; 83605; 83690; 83735; 84100; 84145; 84443; 85025; 85610; 86703; 86705; 86706; 86709; 86803; 87040; 87081; 87088; 87340; 96374; 96375; 97116; 97161; 97530; 99285; C9113; G0378; J1644; J2060; J2405; J3411; J3480; J3490; J7030; Q0163

== ENCOUNTER 2020-04-28 15:05 | Emergency (ER) | payer MEDICAID ==
[~2020-04-28] VITALS: Ht 167.6 cm; Wt 59.1 kg
[~2020-04-28 15:05] MED LIST changes: +CHOL200016 PO; +HYDR-4383 PO; +LACT1CAP26 PO; +LEVO500T89 PO; +LORA-269 PO; +MAGN400C PO; +METR500T PO; +MULT-25 PO; -ONDA4TAB6 PO; +THIA50TA10 PO
[2020-04-28] MEDS ORDERED: ondansetron 4mg rapidly disintigrating tab PO ONE (19:20)
[2020-04-28] MEDS ORDERED: ONDA4TAB6 PO (19:22)
[2020-04-28 20:04] VITALS: BP 129/87
== END 2020-04-28 20:00 | disposition home or self-care (01) ==
LOC: ER 15:06
DX: G89.29 Other chronic pain (principal); M54.9 Dorsalgia, unspecified; F12.90 Cannabis use, unspecified, uncomplicated; Z98.890 Other specified postprocedural states; Z86.69 Personal history of other diseases of the nervous system and sense organs; Z72.89 Other problems related to lifestyle; Z88.0 Allergy status to penicillin; Z88.1 Allergy status to other antibiotic agents; Z88.2 Allergy status to sulfonamides; Z88.6 Allergy status to analgesic agent; Z79.2 Long term (current) use of antibiotics; Z79.899 Other long term (current) drug therapy
CPT/HCPCS: 72128; 99285

== ENCOUNTER 2020-05-05 07:03 | Emergency (ER) | payer MEDICAID ==
[~2020-05-05] VITALS: Ht 165.1 cm; Wt 56.8 kg
[~2020-05-05 07:03] MED LIST changes: +ONDA4TAB6 PO
[2020-05-05] MEDS ORDERED: normal saline 1000ML IV soln IVB ONE (07:10)
[2020-05-05] MEDS ORDERED: proCHLORperazine 10 MG/2 ml inj IV ONE (07:10)
[2020-05-05 08:00] LABS: BASOPHILS % (AUTO) 0.3 % (0-1); EOSINOPHILS # (AUTO) 0.2 X10'3 (0-0.9); MEAN CORPUSCULAR HEMOGLOBIN 32.2 PG (27.0-31.0); MEAN CORPUSCULAR VOLUME 93.7 FL (78-98); MEAN PLATELET VOLUME 8.4 FL (7.4-10.4); MONOCYTES # (AUTO) 0.9 X10'3 (0-0.9); MONOCYTES % (AUTO) 7.3 % (2-12); WHITE BLOOD COUNT 12.3 X10'3 (4.5-11.0)
[2020-05-05 08:01] LABS: EOSINOPHILS % (AUTO) 1.4 % (0-6); HEMATOCRIT 46.6 % (42.0-52.0); LYMPHOCYTES # (AUTO) 3.4 X10'3 (1.1-4.8); LYMPHOCYTES % (AUTO) 27.6 % (21-51); MEAN CORPUSCULAR HGB CONC 34.4 g/dL (33.0-36.5); NEUTROPHILS # (AUTO) 7.8 X10'3 (1.8-7.7); NEUTROPHILS % (AUTO) 63.4 % (42-75); PLATELET COUNT 375 X10'3 (140-440); RED BLOOD COUNT 4.97 X10'6 (4.70-6.10); RED CELL DISTRIBUTION WIDTH 14.2 % (11.5-14.5)
[2020-05-05] MEDS ORDERED: ketorolac trometh. 30mg/ml inj. IV ONE (08:10)
[2020-05-05 08:18] LABS: ALANINE AMINOTRANSFERASE 91 U/L (12-78); ALBUMIN 4.2 G/DL (3.4-5.0); ALBUMIN/GLOBULIN RATIO 1.1 (1.1-1.5); ALKALINE PHOSPHATASE 95 IU/L (46-116); ANION GAP 15 (8-16); ASPARTATE AMINO TRANSFERASE 92 U/L (10-37); BILIRUBIN,TOTAL 0.8 MG/DL (0.1-1.0); BLOOD UREA NITROGEN 18 MG/DL (7-18); BUN/CREATININE RATIO 18.9 (5.4-32.0); CALCIUM 9.3 MG/DL (8.5-10.1); CHLORIDE 100 MMOL/L (99-107); CREATININE 0.95 MG/DL (0.60-1.10); GLUCOSE 99 MG/DL (70-104); POTASSIUM 3.1 MMOL/L (3.5-5.1); SODIUM 141 MMOL/L (135-145); TOTAL CARBON DIOXIDE 26.3 MMOL/L (24-32); eGFR 87 ML/MIN
[2020-05-05 08:26] LABS: ETHANOL 0.036 GM/DL (0.0-0.010); LIPASE 548 U/L (73-393); MAGNESIUM 1.7 MG/DL (1.5-2.4)
[2020-05-05] MEDS ORDERED: fentaNYL/PF 50MCG/1 ML 2ML syringe IV ONE (09:15)
[2020-05-05] MEDS ORDERED: LORazepam 2 mg/ml vial IV ONE (09:15)
[2020-05-05 10:26] VITALS: BP 122/79
[2020-05-05 10:34] LABS: URINE AMPHETAMINE SCREEN NEGATIVE (Neg); URINE BARBITUATE SCREEN NEGATIVE (Neg); URINE BENZODIAZEPINES SCREEN NEGATIVE (Neg); URINE CANNABINOID SCREEN POSITIVE (Neg); URINE COCAINE SCREEN NEGATIVE (Neg); URINE METHADONE SCREEN NEGATIVE (Neg); URINE OPIATE SCREEN NEGATIVE (Neg); URINE PHENCYCLIDINE SCREEN NEGATIVE (Neg)
== END 2020-05-05 10:33 | disposition home or self-care (01) ==
LOC: ER 07:04
DX: K85.90 Acute pancreatitis without necrosis or infection, unspecified (principal); F10.10 Alcohol abuse, uncomplicated; G43.909 Migraine, unspecified, not intractable, without status migrainosus; G89.29 Other chronic pain; F12.90 Cannabis use, unspecified, uncomplicated; Z72.89 Other problems related to lifestyle; Z88.0 Allergy status to penicillin; Z88.1 Allergy status to other antibiotic agents; Z88.2 Allergy status to sulfonamides; Z88.6 Allergy status to analgesic agent; Z88.8 Allergy status to other drugs, medicaments and biological substances; Z79.2 Long term (current) use of antibiotics; Z79.899 Other long term (current) drug therapy
CPT/HCPCS: 71045; 80053; 80305; 80320; 83690; 83735; 83880; 84484; 85025; 93005; 96361; 96374; 96375; 99285; J0780; J1885; J2060; J3010; J7030

== ENCOUNTER 2020-05-10 19:39 | Emergency (ER) | payer MEDICAID ==
[~2020-05-10] VITALS: Ht 165.1 cm; Wt 56.8 kg
[2020-05-10] MEDS ORDERED: ondansetron/PF 4mg/2ml inj IV ONE (20:05)
[2020-05-10] MEDS ORDERED: normal saline 1000ML IV soln IVB ONE (20:05)
[2020-05-10] MEDS ORDERED: LORazepam 2 mg/ml vial IV ONE (20:05)
[2020-05-10 20:10] LABS: BASOPHILS # (AUTO) 0.1 X10'3 (0-0.2); EOSINOPHILS % (AUTO) 0.2 % (0-6); HEMOGLOBIN 15.7 g/dl (14.0-17.9); NEUTROPHILS # (AUTO) 14.3 X10'3 (1.8-7.7)
[2020-05-10] MEDS ORDERED: thiamine 100mg/ml 2ml inj. IM ONE (20:10)
[2020-05-10 20:11] LABS: BASOPHILS % (AUTO) 0.6 % (0-1); HEMATOCRIT 46.1 % (42.0-52.0); LYMPHOCYTES % (AUTO) 16.3 % (21-51); MEAN CORPUSCULAR HGB CONC 34.1 g/dL (33.0-36.5); MEAN CORPUSCULAR VOLUME 93.9 FL (78-98); MEAN PLATELET VOLUME 8.4 FL (7.4-10.4); MONOCYTES # (AUTO) 0.9 X10'3 (0-0.9); MONOCYTES % (AUTO) 5.1 % (2-12); NEUTROPHILS % (AUTO) 77.8 % (42-75); PLATELET COUNT 318 X10'3 (140-440); RED BLOOD COUNT 4.91 X10'6 (4.70-6.10); WHITE BLOOD COUNT 18.4 X10'3 (4.5-11.0)
[2020-05-10 20:18] LABS: ALANINE AMINOTRANSFERASE 52 U/L (12-78); ALBUMIN 4.1 G/DL (3.4-5.0); ALBUMIN/GLOBULIN RATIO 1.2 (1.1-1.5); ALKALINE PHOSPHATASE 125 IU/L (46-116); ANION GAP 16 (8-16); ASPARTATE AMINO TRANSFERASE 17 U/L (10-37); BILIRUBIN,TOTAL 0.5 MG/DL (0.1-1.0); BLOOD UREA NITROGEN 18 MG/DL (7-18); BUN/CREATININE RATIO 15.7 (5.4-32.0); CALCIUM 9.2 MG/DL (8.5-10.1); CHLORIDE 102 MMOL/L (99-107); CREATININE 1.15 MG/DL (0.60-1.10); GLUCOSE 118 MG/DL (70-104); LIPASE 146 U/L (73-393); POTASSIUM 3.1 MMOL/L (3.5-5.1); SODIUM 144 MMOL/L (135-145); TOTAL CARBON DIOXIDE 26.4 MMOL/L (24-32); TOTAL PROTEIN 7.6 G/DL (6.4-8.2); eGFR 70 ML/MIN
[2020-05-10 20:23] LABS: CLARITY,URINE CLEAR (Clear); COLOR,URINE YELLOW (Yellow); GLUCOSE, URINE NEGATIVE (Neg); KETONES,URINE NEGATIVE (Neg); LEUKOCYTE ESTERASE ,URINE NEGATIVE (Neg); NITRITES, URINE NEGATIVE (Neg); OCCULT BLOOD,URINE NEGATIVE (Neg); PH,URINE 5.5 (4.8-8.0); PROTEIN,URINE 100 mg/dl (Neg); UROBILINOGEN,URINE 0.2 E.U/dL (0.2-1.0)
[2020-05-10 20:24] LABS: UA COLLECTION TYPE URINAL
[2020-05-10] MEDS ORDERED: potassium 10mEq/100ml NS w/LIDOcaine (10mg/bag) IV ONE (20:25)
[2020-05-10 20:29] LABS: BACTERIA,URINE NONE SEEN /HPF (Neg); RBC,URINE NONE SEEN /HPF (0-2); SQUAMOUS EPITHELIAL CELL,UR FEW /LPF (FEW); WBC,URINE 0-4 /HPF (0-4)
[2020-05-10] MEDS ORDERED: potassium CL 10mEq/100ml bag 100 ML IV SCH (20:30)
[2020-05-10] MEDS ORDERED: ketorolac trometh. 30mg/ml inj. IV ONE (21:00)
[2020-05-10] MEDS ORDERED: LORA-269 PO (21:29)
[2020-05-10] MEDS ORDERED: ONDA8TAB13 PO (21:29)
[2020-05-10 22:28] VITALS: BP 118/76
== END 2020-05-10 22:22 | disposition home or self-care (01) ==
LOC: ER 19:40
DX: F10.10 Alcohol abuse, uncomplicated (principal); R11.2 Nausea with vomiting, unspecified; R10.84 Generalized abdominal pain; E86.0 Dehydration; E87.1 Hypo-osmolality and hyponatremia; G43.909 Migraine, unspecified, not intractable, without status migrainosus; G89.29 Other chronic pain; F32.9 Major depressive disorder, single episode, unspecified; F17.200 Nicotine dependence, unspecified, uncomplicated; F12.90 Cannabis use, unspecified, uncomplicated; Z98.890 Other specified postprocedural states; Z72.89 Other problems related to lifestyle; Z88.0 Allergy status to penicillin; Z88.2 Allergy status to sulfonamides; Z79.82 Long term (current) use of aspirin; Z88.5 Allergy status to narcotic agent; Z79.2 Long term (current) use of antibiotics; Z79.899 Other long term (current) drug therapy
CPT/HCPCS: 36415; 80053; 81001; 83690; 85025; 93005; 96361; 96372; 96374; 96375; 99284; J1885; J2060; J2405; J3411; J3480; J7030

== ENCOUNTER 2020-05-13 17:29 | Emergency (ER) | payer MEDICAID ==
[~2020-05-13] VITALS: Ht 165.1 cm; Wt 56.8 kg
[~2020-05-13 17:29] MED LIST changes: +ONDA8TAB13 PO
[2020-05-13] MEDS ORDERED: LIDOcaine Viscous 15ml cup MM ONE (17:40)
[2020-05-13] MEDS ORDERED: mag hydrox/Alum hydrox/simeth 30ml oral suspension PO ONE (17:40)
[2020-05-13] MEDS ORDERED: pantoprazole 40mg Tablet.DR PO ONE (17:40)
[2020-05-13] MEDS ORDERED: iohexol 300mg/ml 100ml inj. ONE (17:43)
[2020-05-13 18:12] LABS: EOSINOPHILS # (AUTO) 0.4 X10'3 (0-0.9); HEMATOCRIT 40.8 % (42.0-52.0); LYMPHOCYTES # (AUTO) 2.9 X10'3 (1.1-4.8); NEUTROPHILS # (AUTO) 7.8 X10'3 (1.8-7.7)
[2020-05-13 18:14] LABS: BASOPHILS % (AUTO) 0.2 % (0-1); EOSINOPHILS % (AUTO) 3.3 % (0-6); HEMOGLOBIN 14.1 g/dl (14.0-17.9); LYMPHOCYTES % (AUTO) 24.4 % (21-51); MEAN CORPUSCULAR HEMOGLOBIN 32.6 PG (27.0-31.0); MEAN CORPUSCULAR HGB CONC 34.6 g/dL (33.0-36.5); MEAN CORPUSCULAR VOLUME 94.2 FL (78-98); MEAN PLATELET VOLUME 8.8 FL (7.4-10.4); MONOCYTES # (AUTO) 0.8 X10'3 (0-0.9); NEUTROPHILS % (AUTO) 65.1 % (42-75); PLATELET COUNT 208 X10'3 (140-440); RED BLOOD COUNT 4.33 X10'6 (4.70-6.10); RED CELL DISTRIBUTION WIDTH 13.7 % (11.5-14.5); WHITE BLOOD COUNT 11.9 X10'3 (4.5-11.0)
[2020-05-13 18:17] LABS: ALANINE AMINOTRANSFERASE 35 U/L (12-78); ALBUMIN 3.4 G/DL (3.4-5.0); ALKALINE PHOSPHATASE 99 IU/L (46-116); ANION GAP 7 (8-16); ASPARTATE AMINO TRANSFERASE 29 U/L (10-37); BILIRUBIN,TOTAL 0.3 MG/DL (0.1-1.0); BLOOD UREA NITROGEN 9 MG/DL (7-18); BUN/CREATININE RATIO 10.3 (5.4-32.0); CALCIUM 8.9 MG/DL (8.5-10.1); CHLORIDE 103 MMOL/L (99-107); CREATININE 0.87 MG/DL (0.60-1.10); ETHANOL < 0.010 GM/DL (0.0-0.010); GLUCOSE 122 MG/DL (70-104); LIPASE 388 U/L (73-393); MAGNESIUM 1.6 MG/DL (1.5-2.4); POTASSIUM 3.3 MMOL/L (3.5-5.1); SODIUM 139 MMOL/L (135-145); TOTAL CARBON DIOXIDE 28.8 MMOL/L (24-32); TOTAL PROTEIN 6.8 G/DL (6.4-8.2); eGFR > 90 ML/MIN
[2020-05-13] MEDS ORDERED: OMEP40CA13 PO (18:51)
[2020-05-13 19:23] VITALS: BP 153/97
== END 2020-05-13 19:25 | disposition home or self-care (01) ==
LOC: ER 17:30 → UNDOADMIN 18:04 → ED HOLD 18:04 → UNDODISIN 19:23
DX: R10.10 Upper abdominal pain, unspecified (principal); R11.0 Nausea; K59.00 Constipation, unspecified; G89.29 Other chronic pain; Z86.69 Personal history of other diseases of the nervous system and sense organs; F12.90 Cannabis use, unspecified, uncomplicated; Z72.89 Other problems related to lifestyle; Z98.890 Other specified postprocedural states; Z88.0 Allergy status to penicillin; Z88.1 Allergy status to other antibiotic agents; Z88.2 Allergy status to sulfonamides; Z88.8 Allergy status to other drugs, medicaments and biological substances; Z88.6 Allergy status to analgesic agent; Z79.2 Long term (current) use of antibiotics; Z79.899 Other long term (current) drug therapy
CPT/HCPCS: 74177; 80053; 80320; 83690; 83735; 85025; 99285; Q9967; 99291; G0378

== ENCOUNTER 2022-11-11 10:39 | Inpatient (IN) | payer MEDICAID ==
[~2022-11-11] VITALS: Ht 165.1 cm; Wt 54.5 kg
[~2022-11-11 10:39] MED LIST changes: -CHOL200016 PO; +CHOL200042 PO; +LEVO-65 PO; -LEVO500T89 PO
[2022-11-11 11:25] LABS: LYMPHOCYTES # (AUTO) 3.3 X10'3 (1.1-4.8); LYMPHOCYTES % (AUTO) 20.7 % (21-51); MEAN PLATELET VOLUME 7.8 FL (7.4-10.4); NEUTROPHILS % (AUTO) 71.9 % (42-75); RED CELL DISTRIBUTION WIDTH 13.8 % (11.5-14.5)
[2022-11-11 11:27] LABS: BASOPHILS # (AUTO) 0.1 X10'3 (0-0.2); BASOPHILS % (AUTO) 0.9 % (0-1); EOSINOPHILS # (AUTO) 0.2 X10'3 (0-0.9); EOSINOPHILS % (AUTO) 1.4 % (0-6); HEMATOCRIT 43.2 % (42.0-52.0); HEMOGLOBIN 14.6 g/dl (14.0-17.9); MEAN CORPUSCULAR HEMOGLOBIN 31.2 PG (27.0-31.0); MEAN CORPUSCULAR HGB CONC 33.9 g/dL (33.0-36.5); MEAN CORPUSCULAR VOLUME 92.1 FL (78-98); MONOCYTES # (AUTO) 0.8 X10'3 (0-0.9); MONOCYTES % (AUTO) 5.1 % (2-12); NEUTROPHILS # (AUTO) 11.4 X10'3 (1.8-7.7); PLATELET COUNT 375 X10'3 (140-440); RED BLOOD COUNT 4.69 X10'6 (4.70-6.10); WHITE BLOOD COUNT 15.9 X10'3 (4.5-11.0)
[2022-11-11 11:42] LABS: ALANINE AMINOTRANSFERASE 19 U/L (12-78); ALBUMIN 4.3 G/DL (3.4-5.0); ALBUMIN/GLOBULIN RATIO 1.1 (1.1-1.5); ALKALINE PHOSPHATASE 71 IU/L (46-116); ANION GAP 11 (8-16); ASPARTATE AMINO TRANSFERASE 11 U/L (10-37); BILIRUBIN,TOTAL 0.3 MG/DL (0.1-1.0); BLOOD UREA NITROGEN 17 MG/DL (7-18); BUN/CREATININE RATIO 16.5 (10.0-20.0); CALCIUM 10.3 MG/DL (8.5-10.1); CHLORIDE 102 MMOL/L (99-107); CREATININE 1.03 MG/DL (0.60-1.10); GLUCOSE 119 MG/DL (70-104); LIPASE 227 U/L (73-393); POTASSIUM 3.2 MMOL/L (3.5-5.1); SODIUM 140 MMOL/L (135-145); TOTAL CARBON DIOXIDE 26.6 MMOL/L (24-32); TOTAL PROTEIN 8.2 G/DL (6.4-8.2); eGFR 78 ML/MIN
[2022-11-11 11:46] LABS: CLARITY,URINE CLEAR (Clear); COLOR,URINE YELLOW (Yellow); GLUCOSE, URINE NEGATIVE (Neg); KETONES,URINE NEGATIVE (Neg); LEUKOCYTE ESTERASE ,URINE NEGATIVE (Neg); NITRITES, URINE NEGATIVE (Neg); OCCULT BLOOD,URINE TRACE-INTACT (Neg); PROTEIN,URINE 30 mg/dl (Neg); UROBILINOGEN,URINE 0.2 E.U/dL (0.2-1.0)
[2022-11-11 11:53] LABS: SQUAMOUS EPITHELIAL CELL,UR FEW /LPF (FEW); UA COLLECTION TYPE CLN CATCH MIDSTREAM
[2022-11-11 11:54] LABS: BACTERIA,URINE 1+ /HPF (Neg); MUCUS STRANDS MODERATE /LPF (Neg)
[2022-11-11] MEDS ORDERED: ondansetron/PF 4mg/2ml inj IV ONE (17:00)
[2022-11-11] MEDS ORDERED: normal saline 1000ML IV soln IVB ONE (17:00)
[2022-11-11] MEDS ORDERED: ketorolac tromethamine 15mg/ml inj. IV ONE (17:20)
[2022-11-11] MEDS ORDERED: nicotine 14mg patch - 24hr TD ONE (18:45)
[2022-11-11] MEDS ORDERED: acetaminophen 325mg tablet PO PRN ×2 (20:20)
[2022-11-11] MEDS ORDERED: mag hydrox/Alum hydrox/simeth 30ml oral suspension PO PRN (20:20)
[2022-11-11] MEDS ORDERED: diphenhydrAMINE 50 mg/ml inj IV PRN (20:20)
[2022-11-11] MEDS ORDERED: magnesium 4gm in 100ml NS 100 ML IV PRN (20:20)
[2022-11-11] MEDS ORDERED: bisacodyl 10mg suppository rectal RC PRN (20:20)
[2022-11-11] MEDS ORDERED: acetaminophen 650mg rectal suppository RC PRN (20:20)
[2022-11-11] MEDS ORDERED: magnesium hydroxide 30ml (MOM) UD suspension PO PRN (20:20)
[2022-11-11] MEDS ORDERED: potassium Cl 20 mEq SR tablet PO PRN (20:20)
[2022-11-11] MEDS ORDERED: magnesium 2GM in 50ml NS 50 ML IV PRN (20:20)
[2022-11-11] MEDS ORDERED: potassium Cl 40MEQ/1/2NS 520ml 520 ML IV PRN (20:20)
[2022-11-11] MEDS ORDERED: magnesium Cl slow-release 64mg tablet PO PRN (20:20)
[2022-11-11] MEDS ORDERED: HYDROcodone/acetaminophen 5mg/325mg tablet PO PRN (20:20)
[2022-11-11] MEDS ORDERED: diphenhydrAMINE 25mg capsule PO PRN (20:20)
[2022-11-11] MEDS ORDERED: temazepam 15mg capsule PO PRN (21:00)
[2022-11-11] MEDS: levoFLOXACIN-Levaquin 500mg/D5 100 ML IV SCH (21:05)
[2022-11-11 21:21] LABS: APTT 28 SECONDS (22-32)
[2022-11-11 21:34] LABS: CREATINE KINASE 51 U/L (39-308); MAGNESIUM 1.6 MG/DL (1.5-2.4); PHOSPHORUS 2.5 MG/DL (2.3-4.5)
[2022-11-11] MEDS ORDERED: IBUP-1984 PO (22:37)
[2022-11-11] MEDS ORDERED: PREG100C55 PO (22:37)
[2022-11-11] MEDS ORDERED: HYDR-3973 PO (22:37)
[2022-11-11] MEDS: potassium cl 20mEq in 1/2 NS 1,000 ML IV SCH (22:53)
[2022-11-11] MEDS: HYDROcodone/acetaminophen 10/325mg tab PO PRN (22:58)
[2022-11-11] MEDS ORDERED: HYDROcodone/acetaminophen 10/325mg tab PO PRN (23:25)
[2022-11-11] MEDS: potassium Cl 20 mEq SR tablet PO PRN (23:58)
[2022-11-12] MEDS: HYDROmorphone inj. 0.5 MG/0.5 ML DISP.SYRIN IV PRN ×5 (00:12→23:54)
[2022-11-12] MEDS: ondansetron 4mg rapidly disintigrating tab PO PRN (02:48)
[2022-11-12] MEDS: potassium Cl 20 mEq SR tablet PO PRN (04:25)
[2022-11-12 04:56] LABS: URINE AMPHETAMINE SCREEN NEGATIVE (Neg); URINE BARBITUATE SCREEN NEGATIVE (Neg); URINE BENZODIAZEPINES SCREEN NEGATIVE (Neg); URINE CANNABINOID SCREEN POSITIVE (Neg); URINE COCAINE SCREEN NEGATIVE (Neg); URINE METHADONE SCREEN NEGATIVE (Neg); URINE OPIATE SCREEN POSITIVE (Neg); URINE PHENCYCLIDINE SCREEN NEGATIVE (Neg)
[2022-11-12 06:58] LABS: BASOPHILS # (AUTO) 0.1 X10'3 (0-0.2); BASOPHILS % (AUTO) 1.3 % (0-1); EOSINOPHILS # (AUTO) 0.3 X10'3 (0-0.9); HEMATOCRIT 38.9 % (42.0-52.0); HEMOGLOBIN 13.1 g/dl (14.0-17.9); LYMPHOCYTES # (AUTO) 3.1 X10'3 (1.1-4.8); LYMPHOCYTES % (AUTO) 27.2 % (21-51); MEAN CORPUSCULAR HGB CONC 33.6 g/dL (33.0-36.5); MEAN CORPUSCULAR VOLUME 95.2 FL (78-98); MEAN PLATELET VOLUME 8.2 FL (7.4-10.4); MONOCYTES # (AUTO) 0.7 X10'3 (0-0.9); MONOCYTES % (AUTO) 6.1 % (2-12); NEUTROPHILS # (AUTO) 7.2 X10'3 (1.8-7.7); NEUTROPHILS % (AUTO) 62.4 % (42-75); PLATELET COUNT 271 X10'3 (140-440); RED BLOOD COUNT 4.08 X10'6 (4.70-6.10); WHITE BLOOD COUNT 11.6 X10'3 (4.5-11.0)
--- NOTE | 2022-11-12 06:59 | NUR ---
Patient in room ED 10. I have received report from brandi polanco and had the opportunity to ask questions and assume patient care.
[2022-11-12 08:00] VITALS: BP 156/85; PULSE 67; RESP 14; TEMP 97.7; O2SAT 100
[2022-11-12] MEDS: K and/or MAG REPLACEMENT MC SCH ×2 (08:00→20:00)
[2022-11-12] MEDS: docusate sod 100mg capsule PO SCH ×2 (08:00→20:00)
[2022-11-12] MEDS ORDERED: metoprolol succinate 25mg (24-HOUR) SR. Tablet PO SCH (08:00)
[2022-11-12] MEDS: nicotine 21mg patch - 24 hr TD SCH (08:14)
[2022-11-12] MEDS: heparin, porcine 5000 units/ml vial SQ SCH ×2 (08:15→20:10)
[2022-11-12 08:48] LABS: ALANINE AMINOTRANSFERASE 14 U/L (12-78); ALBUMIN 3.5 G/DL (3.4-5.0); ALBUMIN/GLOBULIN RATIO 1.1 (1.1-1.5); ALKALINE PHOSPHATASE 65 IU/L (46-116); ANION GAP 8 (8-16); ASPARTATE AMINO TRANSFERASE 15 U/L (10-37); BILIRUBIN,TOTAL 0.3 MG/DL (0.1-1.0); BLOOD UREA NITROGEN 20 MG/DL (7-18); BUN/CREATININE RATIO 21.5 (10.0-20.0); CALCIUM 8.6 MG/DL (8.5-10.1); CHLORIDE 104 MMOL/L (99-107); CREATININE 0.93 MG/DL (0.60-1.10); GLUCOSE 76 MG/DL (70-104); MAGNESIUM 1.7 MG/DL (1.5-2.4); POTASSIUM 3.8 MMOL/L (3.5-5.1); SODIUM 139 MMOL/L (135-145); TOTAL CARBON DIOXIDE 26.6 MMOL/L (24-32); TOTAL PROTEIN 6.7 G/DL (6.4-8.2); eGFR 88 ML/MIN
[2022-11-12] MEDS: ondansetron/PF 4mg/2ml inj IV PRN ×2 (09:11→17:09)
[2022-11-12] MEDS: potassium cl 20mEq in 1/2 NS 1,000 ML IV SCH ×2 (09:12→16:20)
[2022-11-12] MEDS: pantoprazole 40MG/NS 100ML BAG 100 ML IV SCH ×2 (09:13→20:07)
[2022-11-12] MEDS: pregabalin 25mg capsule PO PRN ×2 (09:20→23:56)
[2022-11-12 10:00] VITALS: BP 143/50; PULSE 77; RESP 16; TEMP 97.4; O2SAT 100
[2022-11-12 10:49] VITALS: RESP 15; O2SAT 100
[2022-11-12 18:00] VITALS: BP 129/69; PULSE 73; RESP 22; TEMP 98.8; O2SAT 100
--- NOTE | 2022-11-12 18:47 | NUR ---
Problems reprioritized. Patient report given, questions answered & plan of care reviewed with radha polanco.
--- NOTE | 2022-11-12 19:13 | NUR ---
Patient in room ORTHO 4012. I have received report from pallavi CAVAZOS and had the opportunity to ask questions and assume patient care. Addendum: 11/12/22 at 2312 by Preet Tucker RN wrong pt
[2022-11-12] MEDS: HYDROcodone/acetaminophen 10/325mg tab PO PRN (20:08)
[2022-11-12] MEDS: metoprolol succinate 25mg (24-HOUR) SR. Tablet PO SCH (20:09)
[2022-11-12] MEDS: levoFLOXACIN-Levaquin 500mg/D5 100 ML IV SCH (20:27)
[2022-11-12 22:00] VITALS: BP 129/69; PULSE 73; RESP 22; TEMP 98.8; O2SAT 100
[2022-11-12 22:17] VITALS: BP 136/74; PULSE 67; RESP 16; TEMP 98.9; O2SAT 100
--- NOTE | 2022-11-12 22:38 | NUR ---
Patient in room ORTHO 4012. I have received report from kyler olson and had the opportunity to ask questions and assume patient care. Addendum: 11/12/22 at 2312 by Preet Tucker RN wrong pt
[2022-11-13] MEDS: potassium cl 20mEq in 1/2 NS 1,000 ML IV SCH ×3 (02:20→22:20)
[2022-11-13] MEDS: HYDROcodone/acetaminophen 10/325mg tab PO PRN (04:26)
[2022-11-13] MEDS: ondansetron 4mg rapidly disintigrating tab PO PRN ×2 (04:26→10:49)
--- NOTE | 2022-11-13 05:51 | NUR ---
patient appeared painful, stated [place] was helpful for headache but not for abdominal pain. dilaudid helped with abdominal pain but not headache. managed to sleep minimally. states this is his "norm"
[2022-11-13 06:00] VITALS: BP 127/69; PULSE 67; RESP 14; TEMP 98.4; O2SAT 100
--- NOTE | 2022-11-13 06:12 | NUR ---
Patient in room ORTHO 4011. I have received report from DIRK Wright and had the opportunity to ask questions and assume patient care. NAD at this time.
--- NOTE | 2022-11-13 06:28 | NUR ---
Problems reprioritized. Patient report given, questions answered & plan of care reviewed with damir KESSLER.
[2022-11-13 06:49] LABS: BASOPHILS # (AUTO) 0.2 X10'3 (0-0.2); BASOPHILS % (AUTO) 1.2 % (0-1); EOSINOPHILS # (AUTO) 0.3 X10'3 (0-0.9); EOSINOPHILS % (AUTO) 2.5 % (0-6); HEMATOCRIT 35.6 % (42.0-52.0); HEMOGLOBIN 12.2 g/dl (14.0-17.9); LYMPHOCYTES # (AUTO) 3.5 X10'3 (1.1-4.8); LYMPHOCYTES % (AUTO) 24.9 % (21-51); MEAN CORPUSCULAR HGB CONC 34.4 g/dL (33.0-36.5); MEAN PLATELET VOLUME 7.8 FL (7.4-10.4); MONOCYTES # (AUTO) 0.7 X10'3 (0-0.9); MONOCYTES % (AUTO) 4.8 % (2-12); NEUTROPHILS # (AUTO) 9.3 X10'3 (1.8-7.7); NEUTROPHILS % (AUTO) 66.6 % (42-75); PLATELET COUNT 318 X10'3 (140-440); RED BLOOD COUNT 3.83 X10'6 (4.70-6.10); RED CELL DISTRIBUTION WIDTH 13.7 % (11.5-14.5); WHITE BLOOD COUNT 13.9 X10'3 (4.5-11.0)
[2022-11-13 07:12] LABS: ALANINE AMINOTRANSFERASE 14 U/L (12-78); ALBUMIN 3.4 G/DL (3.4-5.0); ALBUMIN/GLOBULIN RATIO 1.1 (1.1-1.5); ALKALINE PHOSPHATASE 63 IU/L (46-116); ANION GAP 7 (8-16); ASPARTATE AMINO TRANSFERASE 18 U/L (10-37); BILIRUBIN,TOTAL 0.3 MG/DL (0.1-1.0); BLOOD UREA NITROGEN 9 MG/DL (7-18); BUN/CREATININE RATIO 9.7 (10.0-20.0); CALCIUM 8.7 MG/DL (8.5-10.1); CHLORIDE 105 MMOL/L (99-107); CREATININE 0.93 MG/DL (0.60-1.10); GLUCOSE 88 MG/DL (70-104); MAGNESIUM 1.6 MG/DL (1.5-2.4); POTASSIUM 4.2 MMOL/L (3.5-5.1); SODIUM 139 MMOL/L (135-145); TOTAL CARBON DIOXIDE 26.7 MMOL/L (24-32); TOTAL PROTEIN 6.4 G/DL (6.4-8.2); eGFR 88 ML/MIN
[2022-11-13] MEDS: nicotine 21mg patch - 24 hr TD SCH (07:24)
[2022-11-13] MEDS: docusate sod 100mg capsule PO SCH ×2 (07:25→19:43)
[2022-11-13] MEDS: K and/or MAG REPLACEMENT MC SCH ×2 (07:25→18:47)
[2022-11-13] MEDS: heparin, porcine 5000 units/ml vial SQ SCH ×2 (07:25→19:44)
[2022-11-13] MEDS: pantoprazole 40MG/NS 100ML BAG 100 ML IV SCH ×2 (08:04→19:44)
[2022-11-13] MEDS: HYDROmorphone inj. 0.5 MG/0.5 ML DISP.SYRIN IV PRN ×3 (08:09→19:55)
[2022-11-13] MEDS: oxyCODONE/APAP 5-325mg tablet PO PRN ×2 (13:54→18:44)
[2022-11-13 14:51] LABS: CARCINOEMBRYONIC ANTIGEN 3.3 ng/mL (0.0-4.7)
--- NOTE | 2022-11-13 15:44 | NUR ---
EIGHT ARM OPERATOR documentation: I have reviewed and agree with all interventions, assessments performed and documented by Claudia Renee LVN .
[2022-11-13 18:00] VITALS: BP 144/78; PULSE 67; RESP 16; TEMP 99.1; O2SAT 100
--- NOTE | 2022-11-13 18:10 | NUR ---
Patient in room ORTHO 4012. I have received report from DIRK FOREMAN and had the opportunity to ask questions and assume patient care. Addendum: 11/13/22 at 1856 by Marva Peterson RN CHE[employer] FOREMAN
[2022-11-13] MEDS: metoclopramide 5 mg/ml inj IV PRN (18:44)
[2022-11-13 20:00] VITALS: RESP 16; O2SAT 100
[2022-11-13] MEDS: metoprolol succinate 25mg (24-HOUR) SR. Tablet PO SCH (21:12)
[2022-11-13] MEDS: levoFLOXACIN-Levaquin 500mg/D5 100 ML IV SCH (21:12)
[2022-11-13] MEDS: pregabalin 25mg capsule PO PRN (21:18)
[2022-11-13 22:00] VITALS: BP 139/75; PULSE 60; RESP 18; TEMP 98.4; O2SAT 99
[2022-11-14] MEDS: oxyCODONE/APAP 5-325mg tablet PO PRN ×2 (00:55→11:36)
[2022-11-14] MEDS: HYDROmorphone inj. 0.5 MG/0.5 ML DISP.SYRIN IV PRN ×2 (03:31→07:37)
[2022-11-14] MEDS: metoclopramide 5 mg/ml inj IV PRN (03:33)
[2022-11-14] MEDS: potassium cl 20mEq in 1/2 NS 1,000 ML IV SCH (05:15)
--- NOTE | 2022-11-14 05:38 | NUR ---
Problems reprioritized. Patient report given, questions answered & plan of care reviewed with DIRK FERGUSON.
[2022-11-14 06:00] VITALS: BP 145/76; PULSE 64; RESP 15; TEMP 97.3; O2SAT 100
[2022-11-14 07:11] LABS: BASOPHILS # (AUTO) 0.1 X10'3 (0-0.2); EOSINOPHILS # (AUTO) 0.3 X10'3 (0-0.9); EOSINOPHILS % (AUTO) 3.2 % (0-6); HEMOGLOBIN 11.8 g/dl (14.0-17.9); LYMPHOCYTES # (AUTO) 3.2 X10'3 (1.1-4.8); LYMPHOCYTES % (AUTO) 35.9 % (21-51); MEAN CORPUSCULAR HEMOGLOBIN 32.4 PG (27.0-31.0); MEAN CORPUSCULAR HGB CONC 34.7 g/dL (33.0-36.5); MEAN CORPUSCULAR VOLUME 93.4 FL (78-98); MEAN PLATELET VOLUME 7.9 FL (7.4-10.4); MONOCYTES # (AUTO) 0.5 X10'3 (0-0.9); MONOCYTES % (AUTO) 5.9 % (2-12); NEUTROPHILS # (AUTO) 4.8 X10'3 (1.8-7.7); PLATELET COUNT 300 X10'3 (140-440); RED BLOOD COUNT 3.64 X10'6 (4.70-6.10); RED CELL DISTRIBUTION WIDTH 13.6 % (11.5-14.5); WHITE BLOOD COUNT 8.8 X10'3 (4.5-11.0)
[2022-11-14 07:26] LABS: ALANINE AMINOTRANSFERASE 14 U/L (12-78); ALBUMIN 3.1 G/DL (3.4-5.0); ALBUMIN/GLOBULIN RATIO 1.1 (1.1-1.5); ALKALINE PHOSPHATASE 58 IU/L (46-116); ANION GAP 5 (8-16); ASPARTATE AMINO TRANSFERASE 12 U/L (10-37); BILIRUBIN,TOTAL 0.2 MG/DL (0.1-1.0); BLOOD UREA NITROGEN 5 MG/DL (7-18); BUN/CREATININE RATIO 5.4 (10.0-20.0); CALCIUM 8.6 MG/DL (8.5-10.1); CHLORIDE 106 MMOL/L (99-107); CREATININE 0.93 MG/DL (0.60-1.10); GLUCOSE 88 MG/DL (70-104); MAGNESIUM 1.5 MG/DL (1.5-2.4); POTASSIUM 4.2 MMOL/L (3.5-5.1); SODIUM 139 MMOL/L (135-145); TOTAL CARBON DIOXIDE 27.8 MMOL/L (24-32); TOTAL PROTEIN 5.9 G/DL (6.4-8.2); eGFR 88 ML/MIN
[2022-11-14] MEDS: heparin, porcine 5000 units/ml vial SQ SCH (07:38)
[2022-11-14] MEDS: ondansetron/PF 4mg/2ml inj IV PRN (07:38)
[2022-11-14] MEDS: pantoprazole 40MG/NS 100ML BAG 100 ML IV SCH (07:39)
[2022-11-14] MEDS: nicotine 21mg patch - 24 hr TD SCH (07:40)
[2022-11-14 08:00] VITALS: RESP 16; O2SAT 94
[2022-11-14] MEDS: docusate sod 100mg capsule PO SCH (08:00)
[2022-11-14] MEDS: K and/or MAG REPLACEMENT MC SCH (08:00)
[2022-11-14] MEDS ORDERED: iohexol 300mg/ml 100ml inj. ONE (09:53)
[2022-11-14 10:00] VITALS: BP 142/75; PULSE 60; RESP 16; TEMP 98.5; O2SAT 100
[2022-11-14] MEDS ORDERED: PANT40TA54 PO (13:32)
[2022-11-14] MEDS ORDERED: NICO-687 TD (13:32)
[2022-11-14 14:00] VITALS: BP 139/82; PULSE 84; RESP 16; TEMP 98; O2SAT 96
--- NOTE | 2022-11-14 15:00 | NUR ---
pt stable for dc, all belongings taken and dc info signed, pt had no meds in pharmacy, iv dc and cannula dc, all dc info gone over and pt stated he would follow up with PCP. pt was walked to the elevators and left in a private vehicle.
[2022-11-15] MEDS ORDERED: METR-159 PO (11:53)
[2022-11-15] MEDS ORDERED: CIPR-259 PO (11:53)
== END 2022-11-14 14:50 | disposition home or self-care (01) | DRG 282 ==
LOC: ER 10:39 → ED HOLD 20:39 → ORTHO 4S 11-12 07:21
PROVIDERS: ADMIT Family Medicine; ATTEND Internal Medicine
PROC: BW201ZZ Computerized Tomography (CT Scan) of Abdomen using Low Osmolar Contrast (ICD-10-PCS; principal; 2022-11-14)
DX: K85.90 Acute pancreatitis without necrosis or infection, unspecified (principal); N17.9 Acute kidney failure, unspecified; E27.8 Other specified disorders of adrenal gland; N39.0 Urinary tract infection, site not specified; K86.3 Pseudocyst of pancreas; E87.6 Hypokalemia; G40.909 Epilepsy, unspecified, not intractable, without status epilepticus; F32.A Depression, unspecified; G43.909 Migraine, unspecified, not intractable, without status migrainosus; K86.9 Disease of pancreas, unspecified; G89.4 Chronic pain syndrome; K86.1 Other chronic pancreatitis; F11.10 Opioid abuse, uncomplicated; E86.0 Dehydration; F12.10 Cannabis abuse, uncomplicated; K21.9 Gastro-esophageal reflux disease without esophagitis; I10 Essential (primary) hypertension; N20.0 Calculus of kidney; Q07.00 Arnold-Chiari syndrome without spina bifida or hydrocephalus; Z72.0 Tobacco use; Z87.442 Personal history of urinary calculi; Z88.0 Allergy status to penicillin; Z88.2 Allergy status to sulfonamides; Z88.6 Allergy status to analgesic agent; Z79.899 Other long term (current) drug therapy; Z71.6 Tobacco abuse counseling; Z71.51 Drug abuse counseling and surveillance of drug abuser
CPT/HCPCS: 36415; 71046; 74160; 74176; 76700; 80053; 80305; 81001; 82378; 82550; 83605; 83690; 83735; 83880; 84100; 85025; 85610; 85730; 86301; 87040; 87088; 99285; C9113; G0378; J1170; J1644; J1885; J1956; J2405; J2765; J3480; J3490; J7030; Q9967

== ENCOUNTER 2022-11-15 01:46 | Inpatient (IN) | payer MEDICAID ==
[~2022-11-15] VITALS: Ht 165.1 cm; Wt 56.8 kg
[~2022-11-15 01:46] MED LIST changes: -CHOL200042 PO; +HYDR-3973 PO; -HYDR-4383 PO; -LACT1CAP26 PO; -LEVO-65 PO; -LORA-269 PO; -MAGN400C PO; -METR500T PO; -MULT-25 PO; +NICO-687 TD; -ONDA4TAB6 PO; -ONDA8TAB13 PO; -PANT-47 PO; +PANT40TA54 PO; +PREG100C55 PO; -THIA50TA10 PO
[2022-11-15 01:49] VITALS: TEMP 98.4
[2022-11-15] MEDS ORDERED: normal saline 1000ML IV soln IVB ONE (02:15)
[2022-11-15] MEDS ORDERED: ondansetron/PF 4mg/2ml inj IV ONE (02:15)
[2022-11-15] MEDS ORDERED: HYDROmorphone 1 mg/ml syringe IV ONE (02:15)
[2022-11-15 03:19] LABS: CLARITY,URINE CLEAR (Clear); COLOR,URINE YELLOW (Yellow); GLUCOSE, URINE NEGATIVE (Neg); KETONES,URINE 15 mg/dl (Neg); LEUKOCYTE ESTERASE ,URINE NEGATIVE (Neg); NITRITES, URINE NEGATIVE (Neg); OCCULT BLOOD,URINE TRACE-INTACT (Neg); PH,URINE 5.5 (4.8-8.0); PROTEIN,URINE NEGATIVE (Neg); UROBILINOGEN,URINE 0.2 E.U/dL (0.2-1.0)
[2022-11-15 03:19] LABS: BASOPHILS # (AUTO) 0.2 X10'3 (0-0.2); BASOPHILS % (AUTO) 1.6 % (0-1); EOSINOPHILS # (AUTO) 0.2 X10'3 (0-0.9); EOSINOPHILS % (AUTO) 1.2 % (0-6); HEMATOCRIT 31.9 % (42.0-52.0); HEMOGLOBIN 10.8 g/dl (14.0-17.9); LYMPHOCYTES # (AUTO) 2.1 X10'3 (1.1-4.8); LYMPHOCYTES % (AUTO) 14.4 % (21-51); MEAN CORPUSCULAR HEMOGLOBIN 31.4 PG (27.0-31.0); MEAN CORPUSCULAR HGB CONC 33.9 g/dL (33.0-36.5); MEAN CORPUSCULAR VOLUME 92.5 FL (78-98); MEAN PLATELET VOLUME 8.1 FL (7.4-10.4); MONOCYTES # (AUTO) 0.5 X10'3 (0-0.9); MONOCYTES % (AUTO) 3.6 % (2-12); NEUTROPHILS # (AUTO) 11.3 X10'3 (1.8-7.7); NEUTROPHILS % (AUTO) 79.2 % (42-75); PLATELET COUNT 278 X10'3 (140-440); RED BLOOD COUNT 3.45 X10'6 (4.70-6.10); RED CELL DISTRIBUTION WIDTH 13.8 % (11.5-14.5); WHITE BLOOD COUNT 14.2 X10'3 (4.5-11.0)
[2022-11-15 03:22] LABS: UA COLLECTION TYPE CLN CATCH MIDSTREAM
[2022-11-15 03:27] LABS: BACTERIA,URINE NONE SEEN /HPF (Neg); WBC,URINE 0-4 /HPF (0-4)
[2022-11-15 03:28] LABS: HYALINE CASTS 0-3 /LPF (NEGATIVE); MUCUS STRANDS FEW /LPF (Neg); SQUAMOUS EPITHELIAL CELL,UR NONE SEEN /LPF (FEW)
[2022-11-15 03:49] LABS: ALANINE AMINOTRANSFERASE 14 U/L (12-78); ALBUMIN 3.3 G/DL (3.4-5.0); ALBUMIN/GLOBULIN RATIO 1.3 (1.1-1.5); ALKALINE PHOSPHATASE 52 IU/L (46-116); ANION GAP 9 (8-16); ASPARTATE AMINO TRANSFERASE 13 U/L (10-37); BILIRUBIN,TOTAL 0.2 MG/DL (0.1-1.0); BLOOD UREA NITROGEN 6 MG/DL (7-18); BUN/CREATININE RATIO 5.9 (10.0-20.0); CALCIUM 8.6 MG/DL (8.5-10.1); CHLORIDE 108 MMOL/L (99-107); CREATININE 1.01 MG/DL (0.60-1.10); GLUCOSE 99 MG/DL (70-104); POTASSIUM 3.3 MMOL/L (3.5-5.1); SODIUM 143 MMOL/L (135-145); TOTAL CARBON DIOXIDE 26.1 MMOL/L (24-32); TOTAL PROTEIN 5.9 G/DL (6.4-8.2); eGFR 80 ML/MIN
[2022-11-15 03:56] LABS: LIPASE 247 U/L (73-393)
[2022-11-15] MEDS ORDERED: Cefazolin 2GM/100ML NS IVPB 100 ML IV ONE (04:30)
[2022-11-15] MEDS ORDERED: cefepime 2g/NS 100ml ADVANTAGE 100 ML IV ONE (04:32)
[2022-11-15] MEDS ORDERED: cefepime 2g/NS 100ml ADVANTAGE 100 ML IV SCH ×2 (05:00→08:00)
[2022-11-15] MEDS ORDERED: HYDROmorphone inj. 0.5 MG/0.5 ML DISP.SYRIN IV PRN (05:15)
[2022-11-15] MEDS ORDERED: ondansetron 4mg rapidly disintigrating tab PO PRN (05:15)
[2022-11-15] MEDS ORDERED: potassium Cl 20 mEq SR tablet PO PRN ×2 (05:15)
[2022-11-15] MEDS ORDERED: mag hydrox/Alum hydrox/simeth 30ml oral suspension PO PRN (05:15)
[2022-11-15] MEDS ORDERED: potassium Cl 20mEq in NS 1,000 ML IV SCH (05:15)
[2022-11-15] MEDS ORDERED: HYDROcodone/acetaminophen 5mg/325mg tablet PO PRN (05:15)
[2022-11-15] MEDS ORDERED: acetaminophen 650mg rectal suppository RC PRN (05:15)
[2022-11-15] MEDS ORDERED: bisacodyl 10mg suppository rectal RC PRN (05:15)
[2022-11-15] MEDS ORDERED: potassium Cl 40MEQ/1/2NS 520ml 520 ML IV PRN (05:15)
[2022-11-15] MEDS ORDERED: acetaminophen 325mg tablet PO PRN ×2 (05:15)
[2022-11-15] MEDS ORDERED: diphenhydrAMINE 25mg capsule PO PRN (05:15)
[2022-11-15] MEDS ORDERED: diphenhydrAMINE 50 mg/ml inj IV PRN (05:15)
[2022-11-15] MEDS ORDERED: magnesium hydroxide 30ml (MOM) UD suspension PO PRN (05:15)
[2022-11-15] MEDS ORDERED: HYDROcodone/acetaminophen 10/325mg tab PO PRN (05:15)
[2022-11-15] MEDS ORDERED: ondansetron/PF 4mg/2ml inj IV PRN (05:15)
[2022-11-15] MEDS ORDERED: docusate sod 100mg capsule PO SCH (08:00)
[2022-11-15] MEDS ORDERED: pantoprazole 40MG/NS 100ML BAG 100 ML IV SCH (08:00)
[2022-11-15] MEDS ORDERED: nicotine 21mg patch - 24 hr TD SCH (08:00)
[2022-11-15 08:13] LABS: MAGNESIUM 1.7 MG/DL (1.5-2.4); POTASSIUM 3.9 MMOL/L (3.5-5.1)
[2022-11-15 09:04] VITALS: BP 149/85; PULSE 66; RESP 16; O2SAT 100
[2022-11-15 10:54] LABS: BASOPHILS # (AUTO) 0.3 X10'3 (0-0.2); BASOPHILS % (AUTO) 1.9 % (0-1); EOSINOPHILS # (AUTO) 0.2 X10'3 (0-0.9); EOSINOPHILS % (AUTO) 1.3 % (0-6); HEMATOCRIT 37.9 % (42.0-52.0); HEMOGLOBIN 12.6 g/dl (14.0-17.9); LYMPHOCYTES # (AUTO) 2.9 X10'3 (1.1-4.8); LYMPHOCYTES % (AUTO) 20.2 % (21-51); MEAN CORPUSCULAR HEMOGLOBIN 31.3 PG (27.0-31.0); MEAN CORPUSCULAR HGB CONC 33.2 g/dL (33.0-36.5); MEAN CORPUSCULAR VOLUME 94.4 FL (78-98); MONOCYTES # (AUTO) 0.6 X10'3 (0-0.9); MONOCYTES % (AUTO) 4.1 % (2-12); NEUTROPHILS # (AUTO) 10.4 X10'3 (1.8-7.7); NEUTROPHILS % (AUTO) 72.5 % (42-75); PLATELET COUNT 328 X10'3 (140-440); RED BLOOD COUNT 4.02 X10'6 (4.70-6.10); RED CELL DISTRIBUTION WIDTH 13.9 % (11.5-14.5); WHITE BLOOD COUNT 14.3 X10'3 (4.5-11.0)
[2022-11-15] MEDS ORDERED: METR-159 PO (11:53)
[2022-11-15] MEDS ORDERED: CIPR-259 PO (11:53)
== END 2022-11-15 10:50 | disposition home or self-care (01) | DRG 282 ==
LOC: ER 01:47 → ED HOLD 05:17
PROVIDERS: ADMIT Family Medicine; ATTEND Internal Medicine
DX: K86.3 Pseudocyst of pancreas (principal); D64.9 Anemia, unspecified; D72.829 Elevated white blood cell count, unspecified; E86.0 Dehydration; E87.6 Hypokalemia; F17.200 Nicotine dependence, unspecified, uncomplicated; G43.909 Migraine, unspecified, not intractable, without status migrainosus; K86.1 Other chronic pancreatitis; K21.9 Gastro-esophageal reflux disease without esophagitis; R82.4 Acetonuria; F11.10 Opioid abuse, uncomplicated; F12.10 Cannabis abuse, uncomplicated; F31.9 Bipolar disorder, unspecified; G40.909 Epilepsy, unspecified, not intractable, without status epilepticus; G89.4 Chronic pain syndrome; I10 Essential (primary) hypertension; N20.0 Calculus of kidney; Q07.00 Arnold-Chiari syndrome without spina bifida or hydrocephalus; Z80.0 Family history of malignant neoplasm of digestive organs; Z80.3 Family history of malignant neoplasm of breast; Z80.6 Family history of leukemia; Z82.3 Family history of stroke; Z82.49 Family history of ischemic heart disease and other diseases of the circulatory system; Z83.3 Family history of diabetes mellitus; Z87.442 Personal history of urinary calculi; Z88.0 Allergy status to penicillin; Z88.2 Allergy status to sulfonamides; Z88.6 Allergy status to analgesic agent; Z79.899 Other long term (current) drug therapy; Z71.6 Tobacco abuse counseling; Z71.51 Drug abuse counseling and surveillance of drug abuser
CPT/HCPCS: 36415; 80053; 81001; 83605; 83690; 83735; 83880; 84132; 84145; 84484; 85025; 87040; 99285; C2617; C9113; G0378; J0690; J0692; J1170; J2405; J3480; J7030